=== PATIENT | male | born 1935 | race Caucasian/White ===

== ENCOUNTER 2024-08-22 17:59 | Inpatient (IN) | payer OTHER, SELFPAY ==
[2024-08-22] VITALS (11 sets, daily range): BP systolic 117–161; BP diastolic 62–106; BMI 29.8; BMI 27.4
--- NOTE | 2024-08-22 12:05 | ED.GENMED ---
History of Present Illness
General
Chief Complaint: Breathing Problem
Source: patient and family
Exam Limitations: none
Time Seen by Provider: 08/22/24 11:47
History of Present Illness
History of Present Illness:
89yoM with a history of coronary artery disease s/p CABG and PCI, CHF, permanent atrial fibrillation, COPD, hypertension, hyperlipidemia presenting with his daughter for evaluation of multiple complaints. Patient went to [place] last week
with friends on a hunting trip. While he was on the trip 5 days ago, he tripped in the bathroom and struck his left flank region against the bathtub. He has been having ongoing pain since that time and is now developed a bruise in the area. Pain
is worse with breathing and movement. He is also been having a gradual worsening of dyspnea since returning from the trip 3-4 days ago. Daughter states he was noncompliant with his nebulizers during the trip. He gained 6 pounds throughout his
trip and daughter gave him 40 mg of Lasix 3 days ago and a second dose 2 days ago. He typically only takes Lasix as needed. His leg swelling has significantly improved since starting the Lasix. He is still 4 pounds above his dry weight this
morning. Daughter also reports cough and states it seems like he is slurring his words.
Past History
Past History
ED Past Medical History: Arrthythmia, CAD, COPD, HTN, Hypercholesterolemia and Other (sleep apnea)
ED Past Surgical History: Cardiac (CABG, stents) and Orthopedic (Left knee surgery 1995 bilateral carpal tunnel surgeries)
Social History
Tobacco: Former smoker
Alcohol: Occasional
Drug: None
Personal:
Living: with family
Employment: Not employed
Family History
Family History: Hypertension
Phy Exam
General Physical Exam
General Presentation: well appearing
General Skin: warm and dry
General Habitus: normal and elderly
General Mental: alert
ENT Exam
ENT Exam: normocephalic
Cardiovascular Exam
Cardiovascular Exam: irregularly irregular
Pulmonary Exam
Pulmonary Exam: generalized wheezing and other (Rhonchi noted throughout with wheezing. Speaking in full sentences without difficulty )
Gastrointestinal Exam
Gastrointestinal Exam: other (Ecchymosis noted to L flank region. No palpable hematoma. Mild tenderness to L abdomen)
Neurological Exam
Neurological Exam: alert
[place] Coma Scale
Eye Opening: Spontaneous
Verbal Response: Oriented
Motor Response: Obeys Commands
GCS Total Score: 15
Skin Exam
Skin Exam: warm/dry
Psychiatric Exam
Psychiatric Exam: normal mood/affect
Scores
Heart Failure Risk
Heart Failure Risk Score: Not Applicable
Course
Orders/Labs/Results
Orders:
Orders
08/22/24 10:30
ECG [Electrocardiogram (*1)] Urgent
Reason for Study: Atrial Fibrillation
08/22/24 10:31
EKG- Treatment ONCE
08/22/24 12:02
Ipratropium/Albuterol Sulfate [Duoneb] 3 ml INH R NOW STA
08/22/24 12:03
CT Abd/pel Without Iv Or Oral Urgent
Comment:
Reason For Exam: L flank ecchymosis, fall
CR Chest - 2 Views Urgent
Comment:
Reason For Exam: SOB
08/22/24 12:04
Cardiac Monitoring- Treatment ONCE
08/22/24 12:27
Complete Blood Count/With Diff Urgent
Comprehensive Metabolic Panel Urgent
NT-proBNP Urgent
Troponin I Urgent
08/22/24 15:24
Furosemide [Lasix] 40 mg IV NOW STA
08/22/24 17:04
Admit/Transfer Patient As Directed
Co-Sign Provider:
Level of Care: Inpatient admission
Assign to:: Telemetry
Physician / Group: Tia
Diagnosis: CHF
Reason for Telemetry: Acute Heart Failure
Date to Stop Telemetry: 08/25/24
Time to Stop Telemetry: 11:00
Reason for Hospitalization: IV diuretics
Expected length of stay greater than two midnights?: Yes
ELOS- Estimated Length of Stay in days: 3
I certify the patient meets the requirements for IP care: Yes
PRN Pain Medication Management As Directed
May give lesser potent ordered pain med per pt: Yes
preference::
Protocol:: Medication orders for pain may be administered in a
manner that supports deferring to patient preference
when the pt is:
- Requesting an ordered lesser potent pain medication.
Least to most potent pain medications are defined
as: acetaminophen < NSAID < tramadol < opioids
(morphine, oxycodone, hydromorphone).
- Requesting a lesser dose of the same medication IF
ORDERED.
- Requesting a less intrusive route of administration
if both routes are prescribed by the provider (PO <
IV).
08/22/24 17:05
Code Status As Directed
Resuscitation Status: Full Code
08/25/24 11:00
DC Protocol for Telemetry ONCE
Abnormal Lab Results
08/22/24
12:27
RBC 4.39 L 10^6/uL
(4.70-6.10)
Hgb 12.9 L g/dL
(13.0-18.0)
MCHC 32.3 L g/dL
(33.0-37.0)
RDW 15.6 H %
(11.5-14.5)
MPV 11.0 H fL
(7.4-10.4)
Abs Immat Gran (auto) 0.1 H 10^3/uL
(0-0.05)
Absolute Lymphs (auto) 0.6 L 10^3/uL
(1.2-3.4)
Absolute Monos (auto) 0.8 H 10^3/uL
(0.1-0.6)
Immature Gran % 1.3 H %
(0-0.5)
Neutrophils % 79.0 H %
(42.2-75.2)
Lymphocytes % 8.2 L %
(20.5-51.1)
Monocytes % 10.8 H %
(1.7-9.3)
Chloride 108 H mmol/L
(98-107)
BUN 48 H mg/dl
(9-20)
Creatinine 1.6 H mg/dL
(0.7-1.3)
Glucose 116 H mg/dl
(70-99)
Total Bilirubin 2.0 H mg/dl
(0.2-1.3)
Total Protein 6.1 L g/dl
(6.3-8.2)
08/22/24 12:27
08/22/24 12:27
Vital Signs
Initial and Last Documented VS:
Initial Vital Signs
Temp Pulse Resp BP Pulse Ox
97.8 F 49 20 148/73 95
08/22/24 10:25 08/22/24 10:25 08/22/24 10:25 08/22/24 10:25 08/22/24 10:25
Last Documented Vital Signs
Temp Pulse Resp BP Pulse Ox
97.6 F 91 23 155/106 93
08/22/24 12:02 08/22/24 16:50 08/22/24 15:30 08/22/24 16:50 08/22/24 15:30
MDM/Problems Addressed
Differential Diagnosis Includes:
89yoM here with SOB and weight gain. Started after returning from a trip to [place]. Admits to noncompliance with meds/diet. Hx of COPD and CHF. There is rhonchi noted on lung exam. He is mildly hypertensive with otherwise stable vitals. He
is acutely nontoxic appearing. Differential diagnosis includes but is not limited to: CHF exacerbation, COPD exacerbation, GARDENIA, pneumonia
Initial ED plan: Check cardiac labs, EKG, CXR, and CT abdomen given history of fall and L flank ecchymosis. CT head initially ordered due to concern for slurred speech although daughter states he always talks like this when he is dehydrated. DuoNeb
and reassess.
*EKG
Interpreted by ED Provider?: Yes
EKG Intrepretation Date: 08/22/24
Heart Rate: 98
Rate: normal
Rhythm: a-fib and PVC's
[place]: normal axis
QRS Pattern: right bundle branch block
Ischemia: no ischemia
*Critical Care Note
Total Time (30-74mins, 75-104mins- exclusive of procedures): Not Applicable
Update Note
Update Note:
BNP elevated at 5900. Interstitial edema noted on chest x-ray. CT abdomen shows a mildly displaced fracture of the left 11th rib. 40 mg IV Lasix ordered and patient admitted for further management.
ED Attending Note
-
Portions of this chart may have been created with voice recognition software.� Occasional wrong word or��sound alike� substitutions may have occurred due to the inherent limitations of voice recognition software.
Discharge Plan
Departure
Patient Disposition: Admit
Date of Disposition: 08/22/24
Time of Disposition: 15:44
Presentation/result/management discussed w/ accepting MD/DO: Hospitalist
Discharge Problem:
Acute exacerbation of CHF (congestive heart failure), Closed fracture of rib of left side
Interventions
Interventions:
*Risk Screen - Suicide Last Done: 08/22/24 10:25
*General Assessment Last Done: 08/22/24 12:02
*Neglect/Abuse Screening Last Done: 08/22/24 12:02
*ED- Fall Risk Assessment Last Done: 08/22/24 12:02
*ED COVID-19 Vaccine History Last Done: 08/22/24 12:02
ED- Cardiac Assessment Last Done: 08/22/24 12:02
ED- Pulmonary Assessment Last Done: 08/22/24 12:02
[2024-08-22 12:41] LABS: % Basophils 0.4 % (0-2); % Eosinophils 0.3 % (0-6); % Immature Granulocytes 1.3 % (0-0.5); % Lymphocytes 8.2 % (20.5-51.1); % Monocytes 10.8 % (1.7-9.3); Absolute Immature Granulocytes 0.1 10^3/uL (0-0.05); Absolute Lymphocytes 0.6 10^3/uL (1.2-3.4); Absolute Monocytes 0.8 10^3/uL (0.1-0.6); Absolute Neutrophils 6.2 10^3/uL (1.4-6.5); Hemoglobin 12.9 g/dL (13.0-18.0); Mean Corp Hgb Conc. 32.3 g/dL (33.0-37.0); Mean Corpuscular Hgb 29.4 pg (27.0-31.0); Mean Corpuscular Volume 91.1 fL (80.0-94.0); Nucleated Red Blood Cells % 0 % (-); Platelet Count 135 10^3/uL (130-400); Red Blood Cell Count 4.39 10^6/uL (4.70-6.10); Red Cell Dist. Width 15.6 % (11.5-14.5); White Blood Cell Count 7.8 10^3/uL (4.8-10.8)
[2024-08-22 13:02] LABS: ALT (SGPT) 19 U/L (0-50); AST (SGOT) 32 U/L (17-59); Albumin 3.7 g/dl (3.5-5.0); Alkaline Phosphatase 77 U/L (38-126); Blood Urea Nitrogen 48 mg/dl (9-20); Calcium 9.1 mg/dl (8.4-10.2); Carbon Dioxide 24 mmol/L (22-30); Chloride 108 mmol/L (98-107); Estimated Creatinine Clearance 31 ml/min; Glucose 116 mg/dl (70-99); Potassium 4.1 mmol/L (3.5-5.1); Sodium 142 mmol/L (135-145); Total Protein 6.1 g/dl (6.3-8.2); eGFR 41.19
[2024-08-22 13:05] LABS: NT-proBNP 5920 pg/ml; Troponin I 0.022 ng/ml
[2024-08-22] MEDS: DUONEB 3 ML INH ×2 (13:07→20:58)
--- NOTE | 2024-08-22 16:20 | HPS.HSE ---
Family Physician
-
Family Physician: Miryam Pina, DO
Chief Complaint
-
Dyspnea on exertion, Cough and Lower Extremity Edema
History of Present Illness
Patient is an 89 y/o male past medical history of CAD, CHF, CKD and COPD who presents with dyspnea on exertion, cough and lower extremity edema. Patient was away with friend for a week and when he returned from the trip his daughter noted he had
gained 6 lbs in a week and had significant lower extremity edema. Patient took Lasix on August 19 and , but not (yesterday) due to the holiday. Daughter reports lower extremity edema is slightly better but not back to baseline. Daughter
notes patient also missed doses of nebulizers while away. Patient also sustained a fall and is complaining about left flank pain and bruising.
He denies fevers. He denies chest pain.
Medical History
Past Medical History
Past Medical History: Reports Other
Additional Past Medical History:
Coronary Artery Disease s/p CABG and Stent
Chronic HFpEF
Paroxysmal Atrial Fibrillation
Essential Hypertension
Hyperlipidemia
CKD Stage III
Chronic Metabolic Acidosis
COPD
Past Surgical History: Reports Other
Additional Past Surgical History:
Coronary Artery Bypass Graft
Left Knee Surgery
Bilateral Carpal Tunnel
Social History
Tobacco: Former Smoker
Alcohol: Occasional
Living: With Family
Family History
Family History: Not pertinent
Allergies / Home Medications
Allergies reflects when Allergies were last updated in [facility].
Home Medications with original date entered in [facility]
Allergy/Medication List:
Allergies
Allergy/AdvReac Type Severity Reaction Status Date / Time
No Known Allergies Allergy Verified 08/22/24 10:26
Home Medications
cyanocobalamin (vitamin B-12) 1,000 mcg tablet 1,000 mcg PO DAILY Supplement 07/04/11
budesonide 0.5 mg/2 mL suspension for nebulization 0.5 mg inhalation R BID Lung/breathing issues 02/28/20
rosuvastatin 40 mg tablet (Crestor) 40 mg PO QPM High cholesterol 02/28/20
allopurinol 300 mg tablet 300 mg PO HS Gout 05/08/23
ipratropium 0.5 mg-albuterol 3 mg (2.5 mg base)/3 mL nebulization soln 3 ml inhalation R BID Lung/Breathing Issues 05/08/23
apixaban 2.5 mg tablet (Eliquis) 2.5 mg PO BID afib #0 tabs 05/11/23
omega 9-ncn-yki-fish oil 1,200 mg (144 mg-216 mg) capsule (Fish Oil) 1,200 cap PO DAILY Supplement #0 caps 05/11/23
acetaminophen 500 mg tablet (Tylenol Extra Strength) 1,000 mg PO BIDPRN PRN mild pain 05/25/23
sodium bicarbonate 650 mg tablet 650 mg PO TID 08/22/24
Review of Systems
-
A 12 point ROS was completed and negative except as noted: Yes
Constitutional: Denies Fever
Respiratory: Reports Cough and Trouble Breathing
Cardiac: Denies Chest Pain or Palpitations
Physical Exam
Vital Signs
Vital Signs
Temp Pulse Resp BP Pulse Ox
97.6 F 99 23 136/81 93
08/22/24 12:02 08/22/24 15:30 08/22/24 15:30 08/22/24 15:30 08/22/24 15:30
Physical Exam
General: Comfortable and Conversant
HEENT: Anicteric and Moist mucous membranes
Respiratory: Wheezes, Rhonchi and Other (Increased work of breath with minimal activity to scoot up on stretcher)
Cardiac: S1/S2 and Regular Rhythm
GI: Soft and Non Tender
Rectal: Deferred by Provider
Musculoskeletal: No Clubbing, No Cyanosis and Other (+1 edema bilateral lower extremities)
Skin: Warm, Dry and Other (Ecchymosis left flank )
Neuro: Awake, Alert and Nonfocal/grossly intact
Psych: Calm
Laboratory Results
-
08/22/24 12:
08/22/24 12:27
Laboratory Results
Total Bilirubin 2.0 mg/dl (0.2-1.3) H 08/22/24 12:
AST 32 U/L (17-59) 08/22/24 12:
ALT 19 U/L (0-50) 08/22/24 12:
Alkaline Phosphatase 77 U/L (38-126) 08/22/24 12:
Troponin I 0.022 ng/ml 08/22/24 12:27
Data Reviewed
-
Diagnostic Radiology: Report Reviewed by me
CT Scan: Report Reviewed by me
Lab Data: Labs Reviewed by me
Impression/Plan
-
Acute on Chronic HFpEF
-Consult Cardiology
-Check Echo
-Continue Lasix 40mg IV Daily
-Monitor Is&Os and Daily Weights
Left 11th Rib Fracture
-Continue Tylenol and Oxycodone prn
-Avoid Lidocaine patch given significant bruising
COPD, mild acute exacerbation
-Continue budesonide
-Continue DuoNeb QID and PRN
-Add Mucinex
-Consider steroids if breathing is no improving
Coronary Artery Disease s/p CABG and Stent
-Stable
Paroxysmal Atrial Fibrillation
-Continue Eliquis
Hyperlipidemia
-Continue Crestor
CKD Stage III
-Monitor Creatinine closely while on diuretics
Chronic Metabolic Acidosis
-Continue sodium bicarbonate
DVT proph: Eliquis
Code Status: Full Code
[2024-08-22] MEDS: LASIX 40 MG IV (16:50)
--- NOTE | 2024-08-22 17:00 | W.PN.UPDATE ---
Update Note
Progress Note Update
This is an addendum to the H&P written by Ling Newman on 08/22/2024.� Patient seen and examined independently with PA.
89-year-old male past medical history of HFpEF, permanent atrial fibrillation on Eliquis, hypertension, hyperlipidemia, obstructive sleep apnea, COPD, CAD status post CABG, CKD 3B, gout presenting with shortness of breath and cough with exertion and
6 pound weight gain and lower extremity edema after noncompliance with diet while on vacation recently.
Also with fall 3 days ago with left flank pain.
Vital signs normal but getting tachycardic and tachypneic with exertion.� Coarse rhonchi on examination
Labs show cardiac BNP of 5900.� Creatinine of 1.6 better than baseline.� Chest x-ray shows interstitial edema.
CT abdomen pelvis shows displaced fracture of the posterior left 11th rib with mild inflammatory stranding within the overlying soft tissue.� There is mild bronchial wall thickening within both posterior lobes some peripheral nodules infectious or
inflammatory.
Patient with acute CHF exacerbation.� 40 IV Lasix daily.� Monitor renal function.� Check echocardiogram.� Cardiology consulted.
DuoNebs every 6 as needed.� Consider steroids if no improvement with diuresis.
Tylenol for pain from rib fracture.
--- NOTE | 2024-08-22 17:33 | CON.CAR ---
Addendum entered and electronically signed by Cha Balderas MD 08/22/24 18:05:
I saw and examined the patient.
The [employer] DRY HOUSE OPERATOR's note was reviewed and I agree with the note.
Comment: 89 year old male with CAD s/p CABG 2005 (JJ-LAD, VG-D1, VG-PDA), mid RCA stent 2004, paroxysmal atrial flutter, persistent atrial fibrillation (on apixaban), HTN, dyslipidemia, mild/mod , mild AR, mild/mod TR, chronic HFpEF, CKD3b, SIMÓN
(cannot tolerate CPAP), and COPD, who presented with a chief complaint of shortness of breath, after being noncompliant with diet, nebulizer, and medications during recent vaction. On exam, he is sitting right up. He is diffusely wheezing, has an
elevated jvp, irreg irreg, 1+ edema. ECG afib with rbbb, CXR mild pulm edema. TTE 05/11/23 normal lvef, mod as. Assesssment: acuter hfpef, acute copd exacerbation. Will diuresis with iv lasix and intensive monitoring,will update echo. Will likely
need some plan for standing diuretic. Would aggressively treat COPD as well. Will follow
Original Note:
Consultation
Consultation Request
Date/Time Consultation Requested: 08/22/2024 17:05
Date/Time Consultation Performed: 08/22/2024 17:05
Requesting Provider: Ling Davis PA-C
Performing Provider: LINDA Marquez for Dr. Balderas
Reason for Consultation: Acute on chronic heart failure
Medical History
-
Chief Complaint: Shortness of breath
History of Present Illness:
Mr. Cevallos is an 89 year old male with CAD s/p CABG 2005 (JJ-LAD, VG-D1, VG-PDA), mid RCA stent 2004, paroxysmal atrial flutter, persistent atrial fibrillation (on apixaban), HTN, dyslipidemia, mild/mod , mild AR, mild/mod TR, chronic HFpEF,
CKD3b, SIMÓN (cannot tolerate CPAP), and COPD, who presented with a chief complaint of shortness of breath. He endorses associated cough and lower extremity edema. He was recently on a hunting trip in [place]. He endorses nonadherence with
sodium and fluid intake. He also had not been using his nebulizer. He takes furosemide as needed. When he was on daily dosing he had syncope in the setting of dehydration. His daughter gave him oral furosemide for the past 2 days. He has lost 2
of the 6 pounds of weight gain. He endorses orthopnea, lower extremity edema, and cough.
While on his hunting trip, he fell in the bathroom. He has a rib fracture. Bruising on exam.
Past Medical History
Past Medical History: Arrhythmias (Paroxysmal atrial flutter, persistent atrial fibrillation), CAD, CHF, Hypercholesterolemia and Valvular Disease
Past Surgical History: Cardiac (CABG) and Orthopedic
Social History
Tobacco: Former Smoker
Alcohol: None
Drug: None
Living: With Family
Employment: Retired
Family History
Family History: Reviewed & Not Pertinent
Allergies / Home Medications
Allergy/AdvReac Type Severity Reaction Status Date / Time
No Known Allergies Allergy Verified 08/22/24 10:26
�Medication �Instructions �Recorded �Confirmed �Type
cyanocobalamin (vitamin B-12) 1,000 mcg PO DAILY Supplement 07/04/11 08/22/24 History
1,000 mcg tablet
budesonide 0.5 mg/2 mL suspension 0.5 mg inhalation R BID 02/28/20 08/22/24 History
for nebulization Lung/breathing issues
rosuvastatin 40 mg tablet (Crestor) 40 mg PO QPM High cholesterol 02/28/20 08/22/24 History
allopurinol 300 mg tablet 300 mg PO HS Gout 05/08/23 08/22/24 History
ipratropium 0.5 mg-albuterol 3 mg 3 ml inhalation R BID 05/08/23 08/22/24 History
(2.5 mg base)/3 mL nebulization Lung/Breathing Issues
soln
apixaban 2.5 mg tablet (Eliquis) 2.5 mg PO BID afib #0 tabs 05/11/23 08/22/24 Rx
omega 8-hci-xzc-fish oil 1,200 mg 1,200 cap PO DAILY Supplement #0 05/11/23 08/22/24 Rx
(144 mg-216 mg) capsule (Fish Oil) caps
acetaminophen 500 mg tablet 1,000 mg PO BIDPRN PRN mild pain 05/25/23 08/22/24 History
(Tylenol Extra Strength)
sodium bicarbonate 650 mg tablet 650 mg PO TID 08/22/24 08/22/24 History
Review of Systems
-
History Source: Patient
All other systems: Negative unless noted
Constitutional: Weight Gain and Fatigue
EENT: No Symptoms
Respiratory: Cough and Trouble Breathing
Cardiac: No Symptoms
Abdomen/GI: No Symptoms
: No Symptoms
Musculoskeletal: Edema
Skin: No Symptoms
Neurological: Weakness
Endocrine: No Symptoms
Hematologic/Lymphatic: No Symptoms
Physical Exam
Vital Signs
Temp Pulse Resp BP Pulse Ox
97.6 F 91 23 155/106 93
08/22/24 12:02 08/22/24 16:50 08/22/24 15:30 08/22/24 16:50 08/22/24 15:30
Lab Results
08/22/24 12:27
08/22/24 12:27
Troponin I 0.022 ng/ml 08/22/24 12:27
Els-E-Oqxlxldpnfl Pept 5920 pg/ml 08/22/24 12:27
Physical Exam
General: Well Developed, Well Nourished and Respiratory Distress (Mild)
HEENT: Normocephalic, Anicteric and Moist Mucous Membranes
Respiratory: Wheezes, Rhonchi and Accessory Resp Muscle Use
Cardiac: S1/S2, Irregular Rhythm and Peripheral Edema
Breast: Deferred by me
GI: Soft, Non Tender, Non Distended and Normal Bowel Sounds
Rectal: Deferred by Provider
Genito-urinary: No Costovertebral Tender
Musculoskeletal: No Clubbing and No Cyanosis
Skin: Warm, Dry and Other (Bruise left ribs)
Neuro: AO x 3
Hematologic/Lymphatic: No Lymphadenopathy
Psych: Calm
Impression / Plan
-
I/P: 89M with CAD s/p CABG 2005 (JJ-LAD, VG-D1, VG-PDA), mid RCA stent 2004, paroxysmal atrial flutter, persistent atrial fibrillation (on apixaban), HTN, dyslipidemia, mild/mod , mild AR, mild/mod TR, chronic HFpEF, CKD3b, SIMÓN (cannot tolerate
CPAP), and COPD, who presented with a chief complaint of shortness of breath.
Outpatient clinical nursing manager: Dr. Celestin
HFpEF, acute on chronic
- Weight gain, orthopnea, elevated proBNP, and interstitial edema on CXR
- Diuresis with intravenous furosemide, this requires intensive monitoring
- GDMT limited by renal function
- Echocardiogram on Thursday, he currently cannot tolerate lying back due to dyspnea
- Daily dosing of furosemide was associated with G[place]EN[place] and syncope in the past
Persistent atrial fibrillation, perhaps permanent
- No plans for rhythm control this admission
- Rate controlled without AV kristi agents, rate slightly elevated in the emergency room but in mild respiratory distress
- [id number] score of 5
- Oral anticoagulation: Apixaban 2.5 mg twice daily (age 89, creatinine >1.5), denies missed doses and abnormal bleeding
COPD, acute on chronic - per primary service
CAD
- CABG 2005 (JJ-LAD, VG-D1, VG-PDA), PCI mRCA (2004)
- Remains stable without chest pain.
- No ASA, on apixaban
Mechanical fall with 11th left rib fracture
CKD3b, with proteinuria, follow with diuresis, follows with nephrology as an outpatient
Aortic stenosis, moderate, peak/mean gradients 42/22 mmHg, mild to moderate AR
Anemia of chronic disease
Former smoker, 100 pack year, continued cessation recommended
Dyslipidemia, stable on rosuvastatin, continue
SIMÓN, CPAP intolerant
SUBJECTIVE:
As above.
Data Reviewed
-
EKG: Report Reviewed by me
Radiology: Report Reviewed by me
Labs: Labs Reviewed by me
Old Records: Reviewed
--- NOTE | 2024-08-22 20:30 | PTCARENOTE ---
Pt arrived to 3W from ED via stretcher at approx. 2000. Pt able to ambulate into room with quad cane. equipment monitor phototypesetting #2 placed. Pt AOx3. Oriented to room and call escudero within reach.
[2024-08-22] MEDS: PULMICORT 0.5 MG INH (20:58)
[2024-08-22] MEDS: SODIUM BICARBONATE 650 MG PO (21:16)
[2024-08-22] MEDS: ELIQUIS 2.5 MG PO (21:16)
[2024-08-22] MEDS: CRESTOR 40 MG PO (21:16)
[2024-08-22] MEDS: ZYLOPRIM 300 MG PO (21:16)
[2024-08-22] MEDS: MUCINEX 600 MG PO (21:17)
--- NOTE | 2024-08-22 22:00 | PTCARENOTE ---
Pt tele monitor alarming for HR 150's-170's. HR sustaining around 120's-130's. BUTT MAKER notified and orders for IV Lopressor added. See MAR for administration. Pt HR now sustaining 80's-100's. Pt asymptomatic. Call escudero within reach. Plan of care
ongoing.
[2024-08-22] MEDS: LOPRESSOR 5 MG IV (22:48)
[2024-08-23 03:00] VITALS: BP 137/83
[2024-08-23 06:00] VITALS: BMI 26.8
[2024-08-23 07:18] VITALS: BP 138/73
[2024-08-23] MEDS: DUONEB 3 ML INH ×3 (07:19→19:20)
[2024-08-23] MEDS: PULMICORT 0.5 MG INH ×2 (07:19→19:24)
--- NOTE | 2024-08-23 07:39 | W.PN.HOSP.TC ---
Today's Communication/Plan
-
Continue IV diuresis
See plan
Assessment / Plan
Assessment / Plan
Physical Exam
General: Not in acute distress
HEENT: Normocephalic and Moist mucous membranes
Respiratory: Rhonchi bilaterally
Cardiac: S1/S2 and Irregular Rhythm. Systolic Murmur present.
GI: Soft and Non Tender. Positive bowel sounds.
Musculoskeletal: No Cyanosis and Other (+1 edema bilateral lower extremities)
Skin: Warm, Dry and Other (Ecchymosis left flank )
Neuro: Awake, Alert and Nonfocal/grossly intact
Psych: Calm
Assessment/Plan
89-year-old male with past medical history of HFpEF, permanent atrial fibrillation on Eliquis, hypertension, hyperlipidemia, obstructive sleep apnea, COPD, CAD status post CABG, CKD 3B, gout presenting with shortness of breath and cough with
exertion and 6 pound weight gain and lower extremity edema after noncompliance with diet while on vacation recently. Also with fall 3 days ago with left flank pain. On admission, vital signs unremarkable but was getting tachycardic and tachypneic
with exertion; coarse rhonchi was present on examination. Labs showed cardiac BNP of 5900. Creatinine of 1.6 better than baseline. Chest x-ray showed interstitial edema. CT abdomen pelvis showed displaced fracture of the posterior left 11th rib with
mild inflammatory stranding within the overlying soft tissue. There is mild bronchial wall thickening within both posterior lobes some peripheral nodules infectious or inflammatory.
Acute on Chronic HFpEF: weight gain, SOB, elevated proBNP, and interstitial pulmonary edema
-Consult Cardiology
-Check Echo on 08/24/24 since patient cannot lie tolerating on back for echo today
-Continue Lasix 40mg IV Daily (please note: daily dosing of furosemide was associated with GARDENIA and syncope in the past)
-Monitor Is&Os and Daily Weights
Recent Fall -- suspected combination of lower edema, weight gain, SOB, CHF exacerbation
Left 11th Rib Fracture
-Continue Tylenol and Oxycodone prn
-Avoid Lidocaine patch given significant bruising
COPD, mild acute exacerbation
-Continue budesonide
-Continue DuoNeb QID and PRN
-Add Mucinex
-Consider steroids if breathing is no improving
Coronary Artery Disease s/p CABG and Stent
-Stable
-Continue Eliquis and statin
Persistent Atrial Fibrillation with RVR
-Continue Eliquis 2.5 mg BID
-Start Cardizem CD 120 mg daily
Hyperlipidemia
-Continue Crestor
CKD Stage III
-Monitor Creatinine closely while on diuretics
-Sees nephrology outpatient
Chronic Metabolic Acidosis
-Continue sodium bicarbonate
Aortic stenosis, moderate, peak/mean gradients 42/22 mmHg, mild to moderate AR
Anemia of chronic disease
Former smoker, 100 pack year, continued cessation recommended
SIMÓN
-CPAP intolerant
DVT Prophylaxis: Eliquis
Code Status: Full Code
Anticipated Discharge: 24 - 48 hours
Subjective/Interval History
-
Date of Service: August 23, 2024
Patient was seen and examined. He denied chest pain, but reported chronic shortness of breath. He denied any other symptoms or complaints.
Objective Data
-
Labs:
Laboratory Results
08/23/24
07:27
WBC Pending
Hgb Pending
Hct Pending
Plt Count Pending
Sodium Pending
Potassium Pending
Chloride Pending
Carbon Dioxide Pending
BUN Pending
Creatinine Pending
Glucose Pending
Calcium Pending
Vital Signs:
Vital Signs
Temp Pulse Resp BP Pulse Ox
98.6 F 96 18 138/73 94
08/23/24 07:18 08/23/24 07:21 08/23/24 07:21 08/23/24 07:18 08/23/24 07:21
I&O
04/08/23/24 08/24/24
06:59 06:59 06:59
Intake Total 480 / 480
Output Total 400 / 400 300 / 300
Balance -400 / -400 180 / 180
--- NOTE | 2024-08-23 07:48 | W.PN.CD ---
Today's Communication / Plan
-
- Continue Lasix 40 mg IV daily for now.
- Echocardiogram on Thursday; currently cannot tolerate lying back due to dyspnea.
- Patient with atrial fibrillation with RVR; will start Cardizem CD 120 mg daily.
Impression / Plan
-
I/P: 89M with CAD s/p CABG 2005 (JJ-LAD, VG-D1, VG-PDA), mid RCA stent 2004, paroxysmal atrial flutter, persistent atrial fibrillation (on apixaban), HTN, dyslipidemia, mild/mod , mild AR, mild/mod TR, chronic HFpEF, CKD3b, SIMÓN (cannot tolerate
CPAP), and COPD, who presented with a chief complaint of shortness of breath.
Outpatient leadership program associate: Dr. Celestin
HFpEF, acute on chronic
- Weight gain, orthopnea, elevated proBNP, and interstitial edema on CXR
- Diuresis with intravenous furosemide, this requires intensive monitoring
- Continue Lasix 40 mg IV daily for now.
- GDMT limited by renal function
- Echocardiogram on Thursday; currently cannot tolerate lying back due to dyspnea.
- Daily dosing of furosemide was associated with GARDENIA and syncope in the past.
Persistent atrial fibrillation, perhaps permanent
- No plans for rhythm control this admission
- Patient with atrial fibrillation with RVR; will start Cardizem CD 120 mg daily.
- [id number] score of 5
- Oral anticoagulation: Apixaban 2.5 mg twice daily (age 89, creatinine >1.5), denies missed doses and abnormal bleeding
COPD, acute on chronic - per primary service
CAD
- CABG 2005 (JJ-LAD, VG-D1, VG-PDA), PCI mRCA (2004)
- Remains stable without chest pain.
- No ASA, on apixaban
Mechanical fall with 11th left rib fracture
CKD3b, with proteinuria, follow with diuresis, follows with nephrology as an outpatient
Aortic stenosis, moderate, peak/mean gradients 42/22 mmHg, mild to moderate AR
Anemia of chronic disease
Former smoker, 100 pack year, continued cessation recommended
Dyslipidemia, stable on rosuvastatin, continue
SIMÓN, CPAP intolerant
Physical Exam
Vital Signs/Labs
Vital Signs
Temp Pulse Resp BP Pulse Ox
98.6 F 96 18 138/73 94
08/23/24 07:18 08/23/24 07:21 08/23/24 07:21 08/23/24 07:18 08/23/24 07:21
08/22/24 08/23/24 08/24/24
06:59 06:59 06:59
Actual Weight 75.342 kg
08/22/24
12:27
Ebu-P-Fzrnvswgcgy Pept 5920
LAB Results
08/22/24
12:27
Troponin I 0.022
Physical Exam
Constitutional: No acute distress and Comfortable
EENT: Anicteric
Cardiovascular: Rhythm/rate is irregular, Pedal edema present (trace to 1+), Systolic murmur present (2-3/6) and S1S2 is normal
Respiratory: Respiratory effort normal, Wheeze Present and Crackles Present (mild)
GI: Soft
Neuro/Psych: AO x 3
Other: Skin (warm, dry)
Data Reviewed
-
Date of Service: August 23, 2024
EKG: Tracing Personally Visualized and interpreted (Telemetry: A-fib with RVR)
Echo: Report Reviewed by me (05/2013: EF 60%, moderate )
Labs: Labs Reviewed by me
[2024-08-23 08:13] LABS: Hematocrit 41.5 % (39.0-52.0); Hemoglobin 13.5 g/dL (13.0-18.0); Mean Corp Hgb Conc. 32.5 g/dL (33.0-37.0); Mean Corpuscular Hgb 29.2 pg (27.0-31.0); Mean Corpuscular Volume 89.6 fL (80.0-94.0); Mean Platelet Volume 11.2 fL (7.4-10.4); Platelet Count 163 10^3/uL (130-400); Red Blood Cell Count 4.63 10^6/uL (4.70-6.10); Red Cell Dist. Width 15.6 % (11.5-14.5); White Blood Cell Count 9.5 10^3/uL (4.8-10.8)
[2024-08-23] MEDS: ELIQUIS 2.5 MG PO ×2 (08:16→21:15)
[2024-08-23] MEDS: CARDIZEM CD 120 MG PO (08:16)
[2024-08-23] MEDS: SODIUM BICARBONATE 650 MG PO ×3 (08:16→21:15)
[2024-08-23] MEDS: MUCINEX 600 MG PO ×2 (08:16→21:15)
[2024-08-23] MEDS: LASIX 40 MG IV (08:17)
[2024-08-23 08:42] LABS: Blood Urea Nitrogen 40 mg/dl (9-20); Calcium 9.3 mg/dl (8.4-10.2); Carbon Dioxide 19 mmol/L (22-30); Chloride 107 mmol/L (98-107); Estimated Creatinine Clearance 27 ml/min; Glucose 111 mg/dl (70-99); Magnesium 2.1 mg/dl (1.6-2.3); Potassium 3.7 mmol/L (3.5-5.1); Sodium 141 mmol/L (135-145)
[2024-08-23 09:08] LABS: TSH Reflex To Free T4 1.74 uIU/ml (0.47-4.68)
--- NOTE | 2024-08-23 10:24 | CM ---
Patient seen at bedside.
Dx: CHF
PMH: CAD, CHF, COPD
IA completed
spoke with daughter Michaelle
Patient recently returned from a hunting trip in [place] with his friends.
Patient lives with his grand-daughter Patricia & her in 1 story home, 3 steps to enter
PLOF: Independent with cane
DME: Cane, walker, nebulizer, shower chair
Has had [facility] in past, denies SNF
PCP: Miryam Pina
Pharmacy: [facility]
PLAN: home, CM to follow for needs
[2024-08-23 10:53] VITALS: BP 110/59
[2024-08-23 15:19] VITALS: BP 115/64
[2024-08-23] MEDS: CRESTOR 40 MG PO (17:27)
[2024-08-23 19:00] VITALS: BP 133/74
[2024-08-23] MEDS: ZYLOPRIM 300 MG PO (21:15)
[2024-08-23 23:00] VITALS: BP 155/77
[2024-08-24 03:00] VITALS: BP 132/73
[2024-08-24 05:51] VITALS: BMI 26.8
[2024-08-24] MEDS: PULMICORT 0.5 MG INH ×2 (07:01→19:15)
[2024-08-24] MEDS: DUONEB 3 ML INH ×2 (07:01→19:15)
[2024-08-24 07:35] VITALS: BP 162/79
[2024-08-24 07:48] VITALS: BP 162/79
[2024-08-24] MEDS: SODIUM BICARBONATE 650 MG PO ×3 (07:53→21:20)
[2024-08-24] MEDS: ELIQUIS 2.5 MG PO ×2 (07:53→19:57)
[2024-08-24] MEDS: MUCINEX 600 MG PO ×2 (07:55→19:57)
[2024-08-24] MEDS: CARDIZEM CD 120 MG PO (07:55)
[2024-08-24 08:27] LABS: Blood Urea Nitrogen 40 mg/dl (9-20); Calcium 9.3 mg/dl (8.4-10.2); Carbon Dioxide 22 mmol/L (22-30); Chloride 105 mmol/L (98-107); Estimated Creatinine Clearance 26 ml/min; Glucose 118 mg/dl (70-99); Magnesium 2.1 mg/dl (1.6-2.3); Potassium 3.6 mmol/L (3.5-5.1); Sodium 141 mmol/L (135-145); eGFR 35.76
--- NOTE | 2024-08-24 09:38 | W.PN.CD ---
Today's Communication / Plan
-
- Continue Lasix 40 mg IV daily.
- Echocardiogram today.
- Patient with atrial fibrillation with RVR at times; continue Cardizem CD 120 mg daily--may ultimately need to increase.
Impression / Plan
-
I/P: 89M with CAD s/p CABG 2005 (JJ-LAD, VG-D1, VG-PDA), mid RCA stent 2004, paroxysmal atrial flutter, persistent atrial fibrillation (on apixaban), HTN, dyslipidemia, mild/mod , mild AR, mild/mod TR, chronic HFpEF, CKD3b, SIMÓN (cannot tolerate
CPAP), and COPD, who presented with a chief complaint of shortness of breath.
Outpatient slip cover sewer: Dr. Celestin
HFpEF, acute on chronic
- Weight gain, orthopnea, elevated proBNP, and interstitial edema on CXR
- Diuresis with intravenous furosemide, this requires intensive monitoring
- Continue Lasix 40 mg IV daily.
- GDMT limited by renal function
- Echocardiogram today.
- Daily dosing of furosemide was associated with GARDENIA and syncope in the past.
Persistent atrial fibrillation, perhaps permanent
- No plans for rhythm control this admission
- Patient with atrial fibrillation with RVR at times; continue Cardizem CD 120 mg daily--may ultimately need to increase.
- [id number] score of 5
- Oral anticoagulation: Apixaban 2.5 mg twice daily (age 89, creatinine >1.5), denies missed doses and abnormal bleeding
COPD, acute on chronic - per primary service
CAD
- CABG 2005 (JJ-LAD, VG-D1, VG-PDA), PCI mRCA (2004)
- Remains stable without chest pain.
- No ASA, on apixaban
Mechanical fall with 11th left rib fracture
CKD3b, with proteinuria, follow with diuresis, follows with nephrology as an outpatient
Aortic stenosis, moderate, peak/mean gradients 42/22 mmHg, mild to moderate AR
Anemia of chronic disease
Former smoker, 100 pack year, continued cessation recommended
Dyslipidemia, stable on rosuvastatin, continue
SIMÓN, CPAP intolerant
Physical Exam
Vital Signs/Labs
Vital Signs
Temp Pulse Resp BP Pulse Ox
98.3 F 96 20 162/79 96
08/24/24 07:48 08/24/24 07:55 08/24/24 07:48 08/24/24 07:55 08/24/24 07:48
08/23/24 08/24/24 08/25/24
06:59 06:59 06:59
Actual Weight 75.342 kg 75.296 kg
08/23/24 07:27
08/24/24 06:22
Magnesium 2.1 mg/dl (1.6-2.3) 08/24/24 06:22
08/22/24
12:27
Ttc-K-Klafkdgzohg Pept 5920
LAB Results
08/22/24
12:27
Troponin I 0.022
Physical Exam
Constitutional: No acute distress and Comfortable
EENT: Anicteric
Cardiovascular: Pedal edema is absent, Systolic murmur absent, Rhythm/rate is irregular and S1S2 is normal
Respiratory: Respiratory effort normal, Wheeze Present and Rhonchi Present
GI: Soft
Neuro/Psych: AO x 3
Other: Skin (Warm, dry, intact)
Data Reviewed
-
Date of Service: August 24, 2024
EKG: Tracing Personally Visualized and interpreted (EKG: Atrial fibrillation)
Medical Tests (PFT, Pathology etc): Discussed with Patient
Labs: Labs Reviewed by me
--- NOTE | 2024-08-24 10:15 | CM ---
Met with patient at bedside
continue diuresis
spoke with hospitalist regarding PT eval-will order
would benefit from home health
PLAN: Await PT eval
[2024-08-24] MEDS: LASIX 40 MG IV (10:51)
[2024-08-24 14:54] VITALS: BP 136/67
[2024-08-24] MEDS: CRESTOR 40 MG PO (17:12)
--- NOTE | 2024-08-24 17:33 | W.PN.HOSP.TC ---
Today's Communication/Plan
-
Continue IV diuresis, Cardizem and Eliquis
Assessment / Plan
Assessment / Plan
Physical Exam
General: Not in acute distress
HEENT: Normocephalic and Moist mucous membranes
Respiratory: Rhonchi bilaterally
Cardiac: S1/S2 and Irregular Rhythm. Systolic Murmur present.
GI: Soft and Non Tender. Positive bowel sounds.
Musculoskeletal: No Cyanosis and Other (+1 edema bilateral lower extremities)
Skin: Warm, Dry and Other (Ecchymosis left flank )
Neuro: Awake, Alert and Nonfocal/grossly intact
Psych: Calm
Assessment/Plan
89-year-old male with past medical history of HFpEF, permanent atrial fibrillation on Eliquis, hypertension, hyperlipidemia, obstructive sleep apnea, COPD, CAD status post CABG, CKD 3B, gout presenting with shortness of breath and cough with
exertion and 6 pound weight gain and lower extremity edema after noncompliance with diet while on vacation recently. Also with fall 3 days ago with left flank pain. On admission, vital signs unremarkable but was getting tachycardic and tachypneic
with exertion; coarse rhonchi was present on examination. Labs showed cardiac BNP of 5900. Creatinine of 1.6 better than baseline. Chest x-ray showed interstitial edema. CT abdomen pelvis showed displaced fracture of the posterior left 11th rib with
mild inflammatory stranding within the overlying soft tissue. There is mild bronchial wall thickening within both posterior lobes some peripheral nodules infectious or inflammatory.
Acute on Chronic HFpEF: weight gain, SOB, elevated proBNP, and interstitial pulmonary edema
-Consult Cardiology
-Echo noted with LVEF 60 to 65%, enlarged right ventricular size, severely dilated left and right atria, moderate aortic stenosis, moderate aortic regurgitation, mild to moderate tricuspid regurgitation
-Continue Lasix 40mg IV Daily (please note: daily dosing of furosemide was associated with GARDENIA and syncope in the past)
-Monitor Is&Os and Daily Weights
Recent Fall -- suspected combination of lower edema, weight gain, SOB, CHF exacerbation
Left 11th Rib Fracture
-Continue Tylenol and Oxycodone prn
-Avoid Lidocaine patch given significant bruising
COPD, mild acute exacerbation
-Continue budesonide
-Continue DuoNeb QID and PRN
-Add Mucinex
-Consider steroids if breathing is no improving
Coronary Artery Disease s/p CABG and Stent
-Stable
-Continue Eliquis and statin
Persistent Atrial Fibrillation with RVR
-Continue Eliquis 2.5 mg BID
-Start Cardizem CD 120 mg daily
Hyperlipidemia
-Continue Crestor
CKD Stage III
-Monitor Creatinine closely while on diuretics
-Sees nephrology outpatient
Chronic Metabolic Acidosis
-Continue sodium bicarbonate
Aortic stenosis, moderate, peak/mean gradients 42/22 mmHg, mild to moderate AR
Anemia of chronic disease
Former smoker, 100 pack year, continued cessation recommended
SIMÓN
-CPAP intolerant
DVT Prophylaxis: Eliquis
Code Status: Full Code
Anticipated Discharge: 24 - 48 hours
Subjective/Interval History
-
Date of Service: August 24, 2024
Patient was seen and examined. He said he was doing good and denied any complaints.
Objective Data
-
Labs:
Laboratory Results
08/24/24
06:22
Sodium 141
Potassium 3.6
Chloride 105
Carbon Dioxide 22
BUN 40 H
Creatinine 1.8 H
Glucose 118 H
Calcium 9.3
Vital Signs:
Vital Signs
Temp Pulse Resp BP Pulse Ox
97.2 F 84 19 136/67 91
08/24/24 14:54 08/24/24 14:54 08/24/24 14:54 08/24/24 14:54 08/24/24 14:54
I&O
08/23/24 08/24/24 08/25/24
06:59 06:59 06:59
Intake Total 960 / 960 1140 / 1140
Output Total 400 / 400 1100 / 1100 800 / 800
Balance -400 / -400 -140 / -140 340 / 340
[2024-08-24 19:39] VITALS: BP 133/70
[2024-08-24] MEDS: ZYLOPRIM 300 MG PO (21:20)
[2024-08-24 21:50] LABS: Glucose - Point of Care 112 mg/dl (70-99)
[2024-08-24 23:17] VITALS: BP 155/81
[2024-08-25] VITALS (8 sets, daily range): BP systolic 129–169; BP diastolic 64–85; PULSE 72–92; O2SAT 90; BMI 26.5
--- NOTE | 2024-08-25 05:26 | DOWNTIME ---
There was a [employer] Downtime on 08/25/2024 from 0200 to 08/26/2023 at 0318 . Downtime documentation of patient's care, including medication administrations, has been reconciled in the electronic record per guidelines. Refer to the
patient's paper chart under the miscellaneous tab to see printed paper medication records and downtime forms.
[2024-08-25] MEDS: PULMICORT 0.5 MG INH ×2 (07:17→19:35)
[2024-08-25] MEDS: DUONEB 3 ML INH ×2 (07:17→19:35)
[2024-08-25 08:02] LABS: Blood Urea Nitrogen 38 mg/dl (9-20); Carbon Dioxide 26 mmol/L (22-30); Chloride 104 mmol/L (98-107); Estimated Creatinine Clearance 27 ml/min; Glucose 117 mg/dl (70-99); Potassium 3.5 mmol/L (3.5-5.1); Sodium 139 mmol/L (135-145)
--- NOTE | 2024-08-25 08:07 | W.PN.CD ---
Today's Communication / Plan
-
increase lasix to 40mg IV bid
trend Cr and weight
Impression / Plan
-
I/P: 89M with CAD s/p CABG 2005 (JJ-LAD, VG-D1, VG-PDA), mid RCA stent 2004, paroxysmal atrial flutter, persistent atrial fibrillation (on apixaban), HTN, dyslipidemia, mild/mod , mild AR, mild/mod TR, chronic HFpEF, CKD3b, SIMÓN (cannot tolerate
CPAP), and COPD, who presented with a chief complaint of shortness of breath.
Outpatient materials recycler: Dr. Celestin
HFpEF, acute on chronic: severe, requiring hospitalization, with close monitoring of labs, tele
-echo 08/24: EF 60-65%, mod AR and , mild/mod TR, PASP 45-50
- Daily dosing of furosemide was associated with GARDENIA and syncope in the past.
-to discuss M/W/F dosing on d/c
- increase lasix to 40mg IV bid
- GDMT limited by renal function
Atrial fibrillation, permanent
- cont diltiazem 120mg daily
- [id number] score of 5
- Oral anticoagulation: Apixaban 2.5 mg twice daily (age 89, creatinine >1.5), denies missed doses and abnormal bleeding
COPD, acute on chronic - per primary service
CAD
- CABG 2005 (JJ-LAD, VG-D1, VG-PDA), PCI mRCA (2004)
- Remains stable without chest pain.
- No ASA, since on apixaban
Mechanical fall with 11th left rib fracture
CKD3b, with proteinuria, follow with diuresis, follows with nephrology as an outpatient
Valvular HD: moderate and AR, mild/mod TR
Anemia of chronic disease
Former smoker, 100 pack year, continued cessation recommended
Dyslipidemia, stable on rosuvastatin, continue
SIMÓN, CPAP intolerant
Physical Exam
Vital Signs/Labs
Vital Signs
Temp Pulse Resp BP Pulse Ox
98.2 F 85 20 145/73 91
08/25/24 07:57 08/25/24 07:57 08/25/24 07:57 08/25/24 07:57 08/25/24 07:57
08/24/24 08/25/24 08/26/24
06:59 06:59 06:59
Actual Weight 75.296 kg 74.298 kg
08/23/24 07:27
08/25/24 06:41
Magnesium 2.1 mg/dl (1.6-2.3) 08/24/24 06:22
08/22/24
12:27
Yqt-F-Atxtwqztvpd Pept 5920
LAB Results
08/22/24
12:27
Troponin I 0.022
Physical Exam
Constitutional: No acute distress and Comfortable
EENT: Moist mucous membranes
Cardiovascular: Pedal edema is absent, Rhythm/rate is irregular, JVD present and Systolic murmur present
Respiratory: Respiratory effort normal
Neuro/Psych: AO x 3
Data Reviewed
-
Date of Service: August 25, 2024
EKG: Other (Tele: A fib 80s-90s)
Labs: Labs Reviewed by me
[2024-08-25] MEDS: ELIQUIS 2.5 MG PO ×2 (08:14→21:17)
[2024-08-25] MEDS: SODIUM BICARBONATE 650 MG PO ×3 (08:14→21:17)
[2024-08-25] MEDS: MUCINEX 600 MG PO ×2 (08:15→21:17)
[2024-08-25] MEDS: CARDIZEM CD 120 MG PO (08:15)
[2024-08-25] MEDS: LASIX 40 MG IV ×2 (08:15→15:40)
[2024-08-25 08:16] LABS: Glucose - Point of Care 119 mg/dl (70-99)
[2024-08-25] MEDS: LASIX IV (09:16)
[2024-08-25 12:32] LABS: Glucose - Point of Care 101 mg/dl (70-99)
--- NOTE | 2024-08-25 14:38 | W.PN.HOSP.TC ---
Today's Communication/Plan
-
Continue IV diuresis, Eliquis, Cardizem
Assessment / Plan
Assessment / Plan
Physical Exam
General: Not in acute distress
HEENT: Normocephalic and Moist mucous membranes
Respiratory: Rhonchi bilaterally
Cardiac: S1/S2 and Irregular Rhythm. Systolic Murmur present.
GI: Soft and Non Tender. Positive bowel sounds.
Musculoskeletal: No Cyanosis and Other (+1 edema bilateral lower extremities)
Skin: Warm, Dry and Other (Ecchymosis left flank )
Neuro: Awake, Alert and Nonfocal/grossly intact
Psych: Calm
Assessment/Plan
89-year-old male with past medical history of HFpEF, permanent atrial fibrillation on Eliquis, hypertension, hyperlipidemia, obstructive sleep apnea, COPD, CAD status post CABG, CKD 3B, gout presenting with shortness of breath and cough with
exertion and 6 pound weight gain and lower extremity edema after noncompliance with diet while on vacation recently. Also with fall 3 days ago with left flank pain. On admission, vital signs unremarkable but was getting tachycardic and tachypneic
with exertion; coarse rhonchi was present on examination. Labs showed cardiac BNP of 5900. Creatinine of 1.6 better than baseline. Chest x-ray showed interstitial edema. CT abdomen pelvis showed displaced fracture of the posterior left 11th rib with
mild inflammatory stranding within the overlying soft tissue. There is mild bronchial wall thickening within both posterior lobes some peripheral nodules infectious or inflammatory.
Acute on Chronic HFpEF: weight gain, SOB, elevated proBNP, and interstitial pulmonary edema
-Consult Cardiology
-Echo noted with LVEF 60 to 65%, enlarged right ventricular size, severely dilated left and right atria, moderate aortic stenosis, moderate aortic regurgitation, mild to moderate tricuspid regurgitation
-Continue Lasix 40mg IV BID (increased from daily previously given while inpatient) -- (please note: daily dosing of furosemide was associated with GARDENIA and syncope in the past)
-Monitor Is&Os and Daily Weights
Recent Fall -- suspected combination of lower edema, weight gain, SOB, CHF exacerbation
Left 11th Rib Fracture
-Continue Tylenol and Oxycodone prn
-Avoid Lidocaine patch given significant bruising
COPD, mild acute exacerbation
-Continue budesonide
-Continue DuoNeb QID and PRN
-Add Mucinex
-Consider steroids if breathing is no improving
Coronary Artery Disease s/p CABG and Stent
-Stable
-Continue Eliquis and statin
Persistent Atrial Fibrillation with RVR
-Continue Eliquis 2.5 mg BID
-Continue Cardizem CD 120 mg daily
Hyperlipidemia
-Continue Crestor
CKD Stage III
-Monitor Creatinine closely while on diuretics
-Sees nephrology outpatient
Chronic Metabolic Acidosis
-Continue sodium bicarbonate
Aortic stenosis, moderate, peak/mean gradients 42/22 mmHg, mild to moderate AR
Anemia of chronic disease
Former smoker, 100 pack year, continued cessation recommended
SIMÓN
-CPAP intolerant
DVT Prophylaxis: Eliquis
Code Status: Full Code
Anticipated Discharge: 24 - 48 hours
Subjective/Interval History
-
Date of Service: August 25, 2024
Patient was seen and examined. He denied any complaints, except for some cough.
Objective Data
-
Labs:
Laboratory Results
08/25/24
06:41
Sodium 139
Potassium 3.5
Chloride 104
Carbon Dioxide 26
BUN 38 H
Creatinine 1.7 H
Glucose 117 H
Calcium 9.0
Vital Signs:
Vital Signs
Temp Pulse Resp BP Pulse Ox
98.6 F 90 18 141/70 93
08/25/24 11:26 08/25/24 11:26 08/25/24 11:26 08/25/24 11:26 08/25/24 11:26
I&O
08/24/24 08/25/24 08/26/24
06:59 06:59 06:59
Intake Total 960 / 960 1140 / 1140
Output Total 1100 / 1100 800 / 800 600 / 600
Balance -140 / -140 340 / 340 -600 / -600
--- NOTE | 2024-08-25 14:38 | CM ---
Addendum entered by Ree Worrell 08/25/24 15:20:
PT/OT rec SNF
CM met with patient - called daughter Michaelle to discuss options - she declines SNF & was agreeable to VN
tt hospitalist
Notified liaison and referral placed
PLAN: Home with [facility], daughter declines SNF
daughter states she will transport
Original Note:
Patient seen at bedside
CM consult completed for [facility]N
prefer [facility]
await PT/OT eval
PLAN: Await PT rec
--- NOTE | 2024-08-25 15:50 | VNURNOTE ---
Home Health Liaison met with [facility] at bedside [facility], schedule and homebound status. He requested this author speak w/his daughter Michaelle. Call placed to daughter. She is agreeable and understands that visits at home
will be 2-3 x per week to assess and teach medical management. Patient lives with his granddaughter, has a small dog. Is agreeable to pet policy. [facility] .
[facility]
[2024-08-25] MEDS: CRESTOR 40 MG PO (17:11)
[2024-08-25] MEDS: ZYLOPRIM 300 MG PO (21:21)
[2024-08-25 22:42] LABS: Glucose - Point of Care 105 mg/dl (70-99)
[2024-08-26 03:39] VITALS: BP 140/87
[2024-08-26] MEDS: DUONEB 3 ML INH (06:04)
[2024-08-26] MEDS: PULMICORT 0.5 MG INH (06:04)
[2024-08-26 06:42] VITALS: BMI 26.0
[2024-08-26 07:31] VITALS: BP 132/79
[2024-08-26 08:12] LABS: Blood Urea Nitrogen 42 mg/dl (9-20); Carbon Dioxide 23 mmol/L (22-30); Chloride 101 mmol/L (98-107); Estimated Creatinine Clearance 24 ml/min; Glucose 124 mg/dl (70-99); Potassium 3.3 mmol/L (3.5-5.1); Sodium 139 mmol/L (135-145); eGFR 33.51
--- NOTE | 2024-08-26 09:12 | W.PN.CD ---
Today's Communication / Plan
-
I spoke to daughter: HF exacerbation was due to diet noncompliance, so lasix can remain prn on d/c.
please call us back with additional questions
Impression / Plan
-
I/P: 89M with CAD s/p CABG 2005 (JJ-LAD, VG-D1, VG-PDA), mid RCA stent 2004, paroxysmal atrial flutter, persistent atrial fibrillation (on apixaban), HTN, dyslipidemia, mild/mod , mild AR, mild/mod TR, chronic HFpEF, CKD3b, SIMÓN (cannot tolerate
CPAP), and COPD, who presented with a chief complaint of shortness of breath.
Outpatient philosophy lecturer: Dr. Celestin
HFpEF, acute on chronic: severe, improved s/p IV lasix
-echo 08/24: EF 60-65%, mod AR and , mild/mod TR, PASP 45-50
- Daily dosing of furosemide was associated with GARDENIA and syncope in the past.
- GDMT limited by renal function
-I spoke to daughter: HF exacerbation was due to diet noncompliance, so lasix can remain prn on d/c.
Atrial fibrillation, permanent
- cont diltiazem 120mg daily
- [id number] score of 5
- Oral anticoagulation: Apixaban 2.5 mg twice daily (age 89, creatinine >1.5), denies missed doses and abnormal bleeding
COPD, acute on chronic - per primary service
CAD
- CABG 2005 (JJ-LAD, VG-D1, VG-PDA), PCI mRCA (2004)
- Remains stable without chest pain.
- No ASA, since on apixaban
Mechanical fall with 11th left rib fracture
CKD3b, with proteinuria, follow with diuresis, follows with nephrology as an outpatient
Valvular HD: moderate and AR, mild/mod TR
Anemia of chronic disease
Former smoker, 100 pack year, continued cessation recommended
Dyslipidemia, stable on rosuvastatin, continue
SIMÓN, CPAP intolerant
Physical Exam
Vital Signs/Labs
Vital Signs
Temp Pulse Resp BP Pulse Ox
98.0 F 98 16 132/79 89
08/26/24 07:31 08/26/24 07:31 08/26/24 07:31 08/26/24 07:31 08/26/24 07:31
08/25/24 08/26/24 08/27/24
06:59 06:59 06:59
Actual Weight 74.298 kg 73.113 kg
08/23/24 07:27
08/26/24 07:19
Magnesium 2.1 mg/dl (1.6-2.3) 08/24/24 06:22
08/22/24
12:27
Knp-Q-Clewqlwrogy Pept 5920
Physical Exam
Constitutional: No acute distress and Comfortable
EENT: Moist mucous membranes
Cardiovascular: Pedal edema is absent, JVD pressure is normal, Rhythm/rate is irregular and Systolic murmur present
Respiratory: Respiratory effort normal and Lungs clear to auscul.
Neuro/Psych: Alert and AO x 3
Data Reviewed
-
Date of Service: August 26, 2024
EKG: Other (Tele: A fib 80s, PVC's)
Labs: Labs Reviewed by me
[2024-08-26] MEDS: ELIQUIS 2.5 MG PO (09:29)
[2024-08-26] MEDS: CARDIZEM CD 120 MG PO (09:29)
[2024-08-26] MEDS: MUCINEX 600 MG PO (09:29)
[2024-08-26] MEDS: SODIUM BICARBONATE 650 MG PO (09:30)
[2024-08-26] MEDS: LASIX IV (10:07)
[2024-08-26] MEDS: KCL 40 MEQ PO (10:18)
--- NOTE | 2024-08-26 10:20 | CM ---
Patient seen at bedside
PT/OT rec SNF - daughter declines
IMM reviewed & signed. In chart
PLAN: Home with [facility], daughter declines SNF
daughter states she will transport
[2024-08-26 11:24] VITALS: BP 140/75
--- NOTE | 2024-08-26 12:46 | W.PN.HOSP.TC ---
Today's Communication/Plan
-
Discharge today
Assessment / Plan
Assessment / Plan
Physical Exam
General: Not in acute distress
HEENT: Normocephalic and Moist mucous membranes
Respiratory: Rhonchi bilaterally - IMPROVED
Cardiac: S1/S2 and Irregular Rhythm. Systolic Murmur present.
GI: Soft and Non Tender. Positive bowel sounds.
Musculoskeletal: No Cyanosis and Other (+1 edema bilateral lower extremities)
Skin: Warm, Dry and Other (Ecchymosis left flank )
Neuro: Awake, Alert and Nonfocal/grossly intact
Psych: Calm
Assessment/Plan
89-year-old male with past medical history of HFpEF, permanent atrial fibrillation on Eliquis, hypertension, hyperlipidemia, obstructive sleep apnea, COPD, CAD status post CABG, CKD 3B, gout presenting with shortness of breath and cough with
exertion and 6 pound weight gain and lower extremity edema after noncompliance with diet while on vacation recently. Also with fall 3 days ago with left flank pain. On admission, vital signs unremarkable but was getting tachycardic and tachypneic
with exertion; coarse rhonchi was present on examination. Labs showed cardiac BNP of 5900. Creatinine of 1.6 better than baseline. Chest x-ray showed interstitial edema. CT abdomen pelvis showed displaced fracture of the posterior left 11th rib with
mild inflammatory stranding within the overlying soft tissue. There is mild bronchial wall thickening within both posterior lobes some peripheral nodules infectious or inflammatory.
Acute on Chronic HFpEF: weight gain, SOB, elevated proBNP, and interstitial pulmonary edema
-Consult Cardiology
-Echo noted with LVEF 60 to 65%, enlarged right ventricular size, severely dilated left and right atria, moderate aortic stenosis, moderate aortic regurgitation, mild to moderate tricuspid regurgitation
-Status post IV Lasix
-On discharge, Lasix can remain PRN (since heart failure exacerbation was due to diet noncompliance) -- (please note: daily dosing of furosemide was associated with G[place]EN[place] and syncope in the past)
-Monitor Is&Os and Daily Weights
Recent Fall -- suspected combination of lower edema, weight gain, SOB, CHF exacerbation
Left 11th Rib Fracture
-Continue Tylenol and Oxycodone prn
-Avoid Lidocaine patch given significant bruising
COPD, mild acute exacerbation
-Continue budesonide
-Continue DuoNeb QID and PRN
-Add Mucinex
-Consider steroids if breathing is no improving
Coronary Artery Disease s/p CABG and Stent
-Stable
-Continue Eliquis and statin
Persistent Atrial Fibrillation with RVR
-Continue Eliquis 2.5 mg BID
-Continue Cardizem CD 120 mg daily
Hypokalemia
Hyperlipidemia
-Continue Crestor
CKD Stage III
-Monitor Creatinine closely while on diuretics
-Sees nephrology outpatient
Chronic Metabolic Acidosis
-Continue sodium bicarbonate
Aortic stenosis, moderate, peak/mean gradients 42/22 mmHg, mild to moderate AR
Anemia of chronic disease
Former smoker, 100 pack year, continued cessation recommended
SIMÓN
-CPAP intolerant
Anemia of chronic disease
Former smoker, 100 pack year, continued cessation recommended
Dyslipidemia, stable on rosuvastatin, continue
SIMÓN, CPAP intolerant
DVT Prophylaxis: Eliquis
Code Status: Full Code
More than 30 minutes spent in discharge including
Final examination of the patient
Summarizing hospital stay
Instructions for continuing care to all relevant caregivers
Preparation of discharge records, prescriptions, and referral forms
Total time spent (in minutes): 37
Anticipated Discharge: Today
Subjective/Interval History
-
Date of Service: August 26, 2024
Patient was seen and examined. He denied any shortness of breath or chest or any other complaints.
Objective Data
-
Labs:
Laboratory Results
08/26/24
07:19
Sodium 139
Potassium 3.3 L
Chloride 101
Carbon Dioxide 23
BUN 42 H
Creatinine 1.9 H
Glucose 124 H
Calcium 9.0
Vital Signs:
Vital Signs
Temp Pulse Resp BP Pulse Ox
97.5 F 91 21 140/75 95
08/26/24 11:24 08/26/24 11:24 08/26/24 11:24 08/26/24 11:24 08/26/24 11:33
I&O
08/25/24 08/26/24 08/27/24
06:59 06:59 06:59
Intake Total 1140 / 1140 960 / 960
Output Total 800 / 800 1950 / 1950
Balance 340 / 340 -990 / -990
--- NOTE | 2024-08-26 13:28 | W.DCSUMMARY ---
Discharge Summary
Discharge Data
Date of Admission: 08/22/24
Date of Discharge: 08/26/24
Total time spent discharging patient (in min): 37
-
Pending Results: No
Hospital Course
89-year-old male with past medical history of HFpEF, permanent atrial fibrillation on Eliquis, hypertension, hyperlipidemia, obstructive sleep apnea, COPD, CAD status post CABG, CKD 3B and gout presented with shortness of breath and cough with
exertion and 6 pound weight gain and lower extremity edema after noncompliance with diet while on vacation recently. Patient had also fallen 3 days, prior to presentation, with resulting left flank pain. Initial vital signs were unremarkable, but
patient was getting tachycardic and tachypneic with exertion, and there were coarse rhonchi on examination. Labs showed cardiac BNP of 5900. Chest x-ray showed interstitial edema. CT Abdomen Pelvis showed displaced fracture of the posterior left
11th rib with mild inflammatory stranding within the overlying soft tissue; there is mild bronchial wall thickening within both posterior lobes some peripheral nodules infectious or inflammatory.
Patient was admitted with acute heart failure exacerbation and started on intravenous Lasix. Cardiology was consulted. Patient was started on Cardizem for atrial fibrillation with rapid ventricular response. 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 Patient's clinical condition improved. Since patient's heart failure exacerbation was due to non-compliance with diet, patient was placed on an as needed (instead of scheduled) Lasix
regimen on discharge.
Discharge Plan
-
Patient Disposition: Home with Home Care
Discharge Diagnosis/Procedures: Acute on Chronic HFpEF: weight gain, SOB, elevated proBNP, and interstitial pulmonary edema
Recent Fall -- suspected from combination of lower edema, weight gain, shortness of breath, heart failure exacerbation
Left 11th Rib Fracture
COPD, mild acute exacerbation
Coronary Artery Disease status post CABG and Stent
Persistent Atrial Fibrillation with Rapid Ventricular Response
Hypokalemia
Hyperlipidemia
CKD Stage III
Chronic Metabolic Acidosis
Aortic stenosis, moderate, peak/mean gradients 42/22 mmHg, mild to moderate AR
Anemia of chronic disease
Former smoker, 100 pack year, continued cessation recommended
SIMÓN
Anemia of chronic disease
Former smoker, 100 pack year, continued cessation recommended
Dyslipidemia, stable on rosuvastatin, continue
SIMÓN, CPAP intolerant
Chest X-Ray Results (as per radiologist's report):
'IMPRESSION:
Findings suggestive of interstitial edema. No pleural effusions. No focal airspace disease.'
Abdomen/Pelvis CT Results (as per radiologist's report):
'FINDINGS:
LOWER CHEST: Extensively calcified aortic valve. Moderate coronary artery calcifications. Mild bronchial wall thickening within both posterior lower lobes with some peripheral bronchovascular nodules within the posterior right lower lobe, likely
infectious or inflammatory nature. Unchanged subpleural nodule within the right middle lobe.
LIVER: Within normal limits.
GALLBLADDER: Cholelithiasis.
BILE DUCTS: Within normal limits.
PANCREAS: Within normal limits.
SPLEEN: Within normal limits.
ADRENALS: Within normal limits.
KIDNEYS/URETERS: No hydronephrosis or nephrolithiasis.
BOWEL: No obstruction or wall thickening. Small hiatal hernia. Mild to moderate sigmoid diverticulosis.
PERITONEUM: No ascites or free air.
REPRODUCTIVE: Moderately enlarged prostate gland.
BLADDER: Within normal limits.
VESSELS: Heavily calcified abdominal aorta and iliac arteries.
RETROPERITONEUM: No retroperitoneal or pelvic lymphadenopathy.
ABDOMINAL WALL: No hernias. Mild amount of inflammatory stranding within the left flank.
BONES: Age-indeterminate mild to moderate compression deformity of T12 vertebral body. Moderate to severe disc disease within the lumbar spine at L2-3 and L3-4. Mild to moderate multilevel central canal stenosis within the lumbar spine. Acute,
mildly displaced fracture of the posterior left 11th rib.
IMPRESSION:
1. Acute, mildly displaced fracture of the posterior left 11th rib with mild inflammatory stranding within the overlying soft tissue.
2. Mild bronchial wall thickening within both posterior lower lobes with some peripheral nodules within the posterior right lower lobe, likely infectious or inflammatory nature.
3. Cholelithiasis.
4. Additional findings above.'
Condition: Fair
Diet: Low Fat, Low Cholesterol, Low Sodium, 2 Gram Sodium, Diabetic, Carb Controlled and Restrict fluids to 64 oz
Activity: As tolerated
Blood Work: CBC, BMP and Magnesium check with primary care provider's office in 3 days
Other Services: VN
Specialty Instructions: Weigh Daily- Call MD for wt gain/loss 3 lbs overnight/5 lbs in 1 week
Instructions: *CBC Heart Failure Instructions
Referrals:
Miryam Pina, DO [Family Provider] - in less than 1 week
Additional Discharge Medication Instructions: Diltiazem is a new medication.
Lasix dose is 20 mg PO daily NEEDED for weight gain of 3 lbs overnight or 5 lbs in 1 week (you will need to call your primary care physician office about this if this happens)
Potassium 10 meq daily for 4 days -- is a new medication
Prescriptions:
New
diltiazem HCl 120 mg Capsule,Extended Release 24hr
120 mg PO DAILY Qty: 30 2RF
guaifenesin 600 mg Tablet Extended Release 12hr
600 mg PO Q12 Qty: 14 0RF
furosemide 20 mg tablet
20 mg PO DAILY PRN (Reason: Weight gain) Qty: 30 0RF
Rx Instructions:
Lasix 20 mg PO daily NEEDED for weight gain of 3 lbs overnight or 5 lbs in 1 week
potassium chloride 10 mEq tablet extended release
10 meq PO DAILY Qty: 4 0RF
Continued
cyanocobalamin (vitamin B-12) 1,000 MCG tablet
1,000 mcg PO DAILY
budesonide 0.5 MG/2 ML suspension for nebulization
0.5 mg inhalation R BID
rosuvastatin [Crestor] 40 MG tablet
40 mg PO QPM
ipratropium-albuterol 0.5 mg-3 mg(2.5 mg base)/3 mL Solution For Nebulization
3 ml INHALATION R BID
allopurinol 300 mg Tablet
300 mg PO HS
omega 5-qey-tbc-fish oil [Fish Oil] 1,200 (144-216) mg Capsule
1,200 cap PO DAILY Qty: 0 0RF
Eliquis 2.5 mg Tablet
2.5 mg PO BID Qty: 0 0RF
acetaminophen [Tylenol Extra Strength] 500 mg Tablet
1,000 mg PO BIDPRN PRN (Reason: mild pain)
sodium bicarbonate 650 mg Tablet
650 mg PO TID
Discharge Orders:
Discharge Patient (As Directed); Ordered 08/26/24
Ordered By: Enio Ortiz
Discharge Date and Time
Discharge Date/Time: 08/26/24 15:19
Print Language: OCCITAN
[2024-08-26 15:00] VITALS: BP 130/80
--- NOTE | 2024-08-29 12:47 | W.HF.CON ---
Heart Failure
- LV Function
Left ventricular function study result: LV Ejection fraction >/= 50%
Ejection Fraction Percentage: 60-65
- ARNI
Patient already on ARNI: No
Heart Failure ARNI Not Indicated: LV Ejection Fraction >/= 40%
- ACEI/ARB
Patient already on ACEI/ARB: No
Heart Failure ACEI/ARB Not Indicated: LV Ejection Fraction > 40%
- Beta Jc
Patient already on Evidence Based Beta Jc: No
Heart Failure Evidence Based Beta Jc Not Indicated: LV Ejection Fraction > 40%
- Mineralocorticord Receptor Antagonist
Patient already on MRA: No
Heart Failure MRA Not Indicated: LV Ejection Fraction > 40%
- SGLT-2 Inhibitor
Patient already on SGLT-2 Inhibitor: No
Heart Failure SGLT-2 Inhibitor Contraindication: Patient Refusal
- Afib Anticoagulation
Patient already on Anticoagulation for Afib: Yes
- NYHA CHF Classification
NYHA CHF Classification Level: Class III - Symptoms w/ min exertion, interferes w/ nml daily activity
- ACC/AHA Stage
ACC/AHA Stage: Stage C: Symptomatic Heart Failure
== END 2024-08-26 15:19 | disposition home health service (06) | DRG 291 ==
LOC: 3 WEST ACU 17:59
PROVIDERS: Physician Assistant; Physician Assistant Medical; ADMITTING PHYSICIAN Hospitalist; ATTENDING PHYSICIAN Hospitalist; CONSULT PHYSICIAN Internal Medicine Cardiovascular Disease; EMERGENCY PHYSICIAN Emergency Medicine; FAMILY PHYSICIAN Family Medicine
DX: I13.0 Hypertensive heart and chronic kidney disease with heart failure and stage 1 through stage 4 chronic kidney disease, or unspecified chronic kidney disease (principal); I50.33 Acute on chronic diastolic (congestive) heart failure; S22.32XA Fracture of one rib, left side, initial encounter for closed fracture; J44.1 Chronic obstructive pulmonary disease with (acute) exacerbation; E87.22 Chronic metabolic acidosis; I48.19 Other persistent atrial fibrillation; N18.32 Chronic kidney disease, stage 3b; I45.10 Unspecified right bundle-branch block; S30.1XXA Contusion of abdominal wall, initial encounter; M10.9 Gout, unspecified; I35.1 Nonrheumatic aortic (valve) insufficiency; E78.00 Pure hypercholesterolemia, unspecified; I25.10 Atherosclerotic heart disease of native coronary artery without angina pectoris; G47.33 Obstructive sleep apnea (adult) (pediatric); E87.6 Hypokalemia; D63.1 Anemia in chronic kidney disease; I35.0 Nonrheumatic aortic (valve) stenosis; W01.0XXA Fall on same level from slipping, tripping and stumbling without subsequent striking against object, initial encounter; Z87.891 Personal history of nicotine dependence; Z91.119 Patient's noncompliance with dietary regimen due to unspecified reason; Z95.1 Presence of aortocoronary bypass graft; Z91.148 Patient's other noncompliance with medication regimen for other reason; Z95.5 Presence of coronary angioplasty implant and graft; Z79.01 Long term (current) use of anticoagulants; Z79.51 Long term (current) use of inhaled steroids
CPT/HCPCS: 71046; 74176; 80048; 80053; 82962; 83735; 83880; 84443; 84484; 85025; 85027; 93005; 93306; 94640; 96374; 97163; 97167; 99285

== ENCOUNTER 2024-09-26 10:31 | Emergency (ER) | payer OTHER, SELFPAY ==
[2024-09-26 10:37] VITALS: BP 134/67
[2024-09-26 11:12] VITALS: BMI 27.5
--- NOTE | 2024-09-26 12:10 | ED.MUSCINJ ---
HPI-Injury
General
Chief Complaint: Fall
Source: patient
Exam Limitations: none
Time Seen by Provider: 09/26/24 11:55
History of Present Illness-Injury
Initial Injury comments:
89-year-old male on Eliquis presents for evaluation after a fall he sustained 3 days ago. Initially when he fell he hit his face. He was evaluated at another hospital with CT of the head face and cervical spine. These were negative. He held his
Eliquis for the next 2 days. He presents today with increased pain to the right wrist and left knee. He is having trouble bearing weight on the left knee. No other complaints at this time
Past History
Past History
ED Past Medical History: Arrthythmia, CAD, COPD, HTN, Hypercholesterolemia and Other (sleep apnea)
ED Past Surgical History: Cardiac (CABG, stents) and Orthopedic (Left knee surgery 1995 bilateral carpal tunnel surgeries)
Social History
Tobacco: Former smoker
Alcohol: Occasional
Drug: None
Personal:
Living: with family
Employment: Not employed
Family History
Family History: Hypertension
Phy Exam
Physical Exam
Physical Exam:
General: Well-appearing male no acute respiratory distress
HEENT: Normocephalic multiple areas of contusion and ecchymosis
Musculoskeletal exam: The spine is nontender. He is swollen and tender about the right wrist and tender about the left knee. No effusion in the left knee. No deformities
Extremities: No cyanosis or edema
Skin: Warm no rash
Injury Course
Orders/Labs/Results
Orders:
Orders
09/26/24 10:41
CR Knee - Left 4 Or More View* Urgent
Comment:
Reason For Exam: pain, swelling, recent fall
09/26/24 10:42
CR Wrist - Right Min 3 Views Urgent
Comment:
Reason For Exam: pain, swelling, recent fall
09/26/24 12:21
Knee Immobilizer Left-Treatmen ONCE
MDM/Problems Addressed
Differential Diagnosis Includes:
Fall with left knee and right wrist pain. Consider sprain versus fracture versus dislocation versus contusion
\\X-rays right wrist and left knee pending
*Critical Care Note
Total Time (30-74mins, 75-104mins- exclusive of procedures): Not Applicable
Update Note
Update Note:
X-ray left knee negative for fracture. Suspect contusion or sprain of the knee. Patient given knee immobilizer and recommended that he use a walker. Stable for discharge
ED Attending Note
-
Portions of this chart may have been created with voice recognition software.� Occasional wrong word or��sound alike� substitutions may have occurred due to the inherent limitations of voice recognition software.
Discharge Plan
Departure
Patient Disposition: Home (Routine Discharge)
Date of Disposition: 09/26/24
Time of Disposition: 14:27
Patient with high blood pressure during this ER visit?: No
Discharge Problem:
Contusion
Instructions: Contusion (DC)
Prescriptions:
No Action
cyanocobalamin (vitamin B-12) 1,000 MCG tablet
1,000 mcg PO DAILY
budesonide 0.5 MG/2 ML suspension for nebulization
0.5 mg inhalation R BID
rosuvastatin [Crestor] 40 MG tablet
40 mg PO QPM
ipratropium-albuterol 0.5 mg-3 mg(2.5 mg base)/3 mL Solution For Nebulization
3 ml INHALATION R BID
allopurinol 300 mg Tablet
300 mg PO HS
omega 2-nsx-avh-fish oil [Fish Oil] 1,200 (144-216) mg Capsule
1,200 cap PO DAILY Qty: 0 0RF
Eliquis 2.5 mg Tablet
2.5 mg PO BID Qty: 0 0RF
acetaminophen [Tylenol Extra Strength] 500 mg Tablet
1,000 mg PO BIDPRN PRN (Reason: mild pain)
sodium bicarbonate 650 mg Tablet
650 mg PO TID
diltiazem HCl 120 mg Capsule,Extended Release 24hr
120 mg PO DAILY Qty: 30 2RF
guaifenesin 600 mg Tablet Extended Release 12hr
600 mg PO Q12 Qty: 14 0RF
furosemide 20 mg tablet
20 mg PO DAILY PRN (Reason: Weight gain) Qty: 30 0RF
Rx Instructions:
Lasix 20 mg PO daily NEEDED for weight gain of 3 lbs overnight or 5 lbs in 1 week
potassium chloride 10 mEq tablet extended release
10 meq PO DAILY Qty: 4 0RF
Referrals:
Miryam Pina DO [Family Provider] -
Activity Restrictions/Additional Instructions:
Use the brace for support when ambulating. Use walker when ambulating. Continue with Tylenol or ice to the sore spots. Return if worse otherwise follow-up with your doctor
Interventions
Interventions:
*Risk Screen - Suicide Last Done: 09/26/24 10:37
*General Assessment Last Done: 09/26/24 10:37
ED-Musculoskeletal Assessment Last Done: 09/26/24 11:14
ED- Neurological Assessment Last Done: 09/26/24 11:12
ED-Skin Assessment Last Done: 09/26/24 11:12
Discharge Date and Time
Print Language: SWEDISH
[2024-09-26 13:33] VITALS: BP 132/68
== END 2024-09-26 15:13 | disposition home or self-care (01) ==
LOC: EMR 10:31
PROVIDERS: EMERGENCY PHYSICIAN Emergency Medicine; FAMILY PHYSICIAN Family Medicine
DX: S00.83XA Contusion of other part of head, initial encounter (principal); S40.022A Contusion of left upper arm, initial encounter; S40.021A Contusion of right upper arm, initial encounter; S80.12XA Contusion of left lower leg, initial encounter; S80.11XA Contusion of right lower leg, initial encounter; M25.531 Pain in right wrist; M25.562 Pain in left knee; M79.89 Other specified soft tissue disorders; W19.XXXA Unspecified fall, initial encounter; I25.10 Atherosclerotic heart disease of native coronary artery without angina pectoris; I10 Essential (primary) hypertension; J44.9 Chronic obstructive pulmonary disease, unspecified; E78.00 Pure hypercholesterolemia, unspecified; G47.30 Sleep apnea, unspecified; Z79.01 Long term (current) use of anticoagulants; Z95.1 Presence of aortocoronary bypass graft; Z95.5 Presence of coronary angioplasty implant and graft; Z87.891 Personal history of nicotine dependence
CPT/HCPCS: 99284; 29505; 73110; 73564

== ENCOUNTER 2024-10-12 19:11 | Inpatient (IN) | payer OTHER, SELFPAY ==
[2024-10-12 16:42] VITALS: BP 125/75
[2024-10-12] MEDS: SOLU-MEDROL PF 125 MG IV (17:22)
[2024-10-12] MEDS: DUONEB 3 ML INH ×2 (17:22→21:07)
[2024-10-12 17:29] LABS: % Basophils 0.3 % (0-2); % Eosinophils 0.3 % (0-6); % Immature Granulocytes 1.6 % (0-0.5); % Lymphocytes 8.1 % (20.5-51.1); % Monocytes 12.9 % (1.7-9.3); % Neutrophils 76.8 % (42.2-75.2); Absolute Immature Granulocytes 0.2 10^3/uL (0-0.05); Absolute Lymphocytes 0.8 10^3/uL (1.2-3.4); Absolute Monocytes 1.3 10^3/uL (0.1-0.6); Absolute Neutrophils 7.6 10^3/uL (1.4-6.5); Hematocrit 38.2 % (39.0-52.0); Hemoglobin 12.3 g/dL (13.0-18.0); Mean Corp Hgb Conc. 32.2 g/dL (33.0-37.0); Mean Corpuscular Hgb 28.7 pg (27.0-31.0); Mean Corpuscular Volume 89.3 fL (80.0-94.0); Mean Platelet Volume 10.5 fL (7.4-10.4); Nucleated Red Blood Cells % 0 % (-); Platelet Count 200 10^3/uL (130-400); Red Blood Cell Count 4.28 10^6/uL (4.70-6.10); White Blood Cell Count 9.9 10^3/uL (4.8-10.8)
[2024-10-12 17:30] VITALS: BP 140/77
[2024-10-12 17:48] LABS: COVID-19 Antigen Negative (Negative)
[2024-10-12 17:49] LABS: ALT (SGPT) 23 U/L (0-50); AST (SGOT) 27 U/L (17-59); Albumin 3.8 g/dl (3.5-5.0); Alkaline Phosphatase 91 U/L (38-126); Blood Urea Nitrogen 41 mg/dl (9-20); Calcium 9.2 mg/dl (8.4-10.2); Carbon Dioxide 21 mmol/L (22-30); Chloride 110 mmol/L (98-107); Glucose 97 mg/dl (70-99); Potassium 3.9 mmol/L (3.5-5.1); Sodium 141 mmol/L (135-145); Total Bilirubin 1.9 mg/dl (0.2-1.3); Total Protein 6.7 g/dl (6.3-8.2); eGFR 52.84
[2024-10-12 17:58] LABS: NT-proBNP 4170 pg/ml
[2024-10-12 18:00] VITALS: BP 122/81
--- NOTE | 2024-10-12 18:13 | ED.GENMED ---
History of Present Illness
General
Chief Complaint: Breathing Problem
Source: patient, records and family
Exam Limitations: none
Time Seen by Provider: 10/12/24 16:52
Nursing documentation reviewed up to this point in time: agreed with
History of Present Illness
History of Present Illness:
89-year-old male with a past medical history of hypertension, hyperlipidemia, CAD, atrial fibrillation on Eliquis, CHF, COPD who presents to the emergency department with his daughter for evaluation of shortness of breath. Patient started having
shortness of breath last week and it has been progressive since that time. Daughter notes that last week he had a 4 pound weight gain; he is prescribed as needed Lasix and took diuretic last week which improved his weight. Shortness of breath
however did not improve and has actually increased. He is having orthopnea. He has had a dry cough. He was brought to the emergency room for evaluation. He did have some leg swelling last week which seems to have improved. He denies any chest
pain. Denies any fevers or chills. He denies any other complaints.
Past History
Past History
ED Past Medical History: Arrthythmia, CAD, COPD, HTN, Hypercholesterolemia and Other (sleep apnea)
ED Past Surgical History: Cardiac (CABG, stents) and Orthopedic (Left knee surgery 1995 bilateral carpal tunnel surgeries)
Social History
Tobacco: Former smoker
Alcohol: Occasional
Drug: None
Personal:
Living: with family
Employment: Not employed
Family History
Family History: Hypertension
Review of Systems
Review of Systems
All Other Systems: ROS reviewed and negative except as documented in HPI and ROS
Constitutional: Reports weight gain; Denies fever or chills
Respiratory: Reports cough and trouble breathing
Cardiac: Denies chest pain or palpitations
ABD/GI: Denies abdominal pain, nausea or diarrhea
: Denies flank pain
Musculoskeletal: Reports edema; Denies neck pain or back pain
Neurological: Denies dizzy or headache
Phy Exam
Physical Exam
Physical Exam:
General: Awake, alert, oriented x3 although very hard of hearing; no acute distress
Head: Normocephalic, atraumatic
Eyes: Conjunctiva normal, EOMI
Throat: Airway intact, handling secretions
Neck: Trachea midline, no JVD noted
Lungs: Patient has bilateral expiratory wheezing, breath sounds are diminished at the lung bases bilaterally; he has hypoxia to 88% requiring 2 L nasal cannula and mild tachypnea
Heart: Regular rate and irregular rhythm, no murmurs, gallops, or rubs
Abd: Soft, non distended, nontender
Neuro: No gross deficits
Skin: Old abrasion on the forehead
Extremities: Patient has some mild edema in the ankles left slightly greater than right which is chronic; extremities are warm and well-perfused
Scores
Heart Failure Risk
Heart Failure Risk Score: Yes
History of Stroke or TIA: No
History of intubation for respiratory distress: No
Heart rate on ED arrival >/= 110: No
SaO2 <90% on arrival on room air: Yes
HR >/=110 during 3min walk test (or too ill to perform test): Yes
ECG has acute ischemic changes: No
Urea >/=12mmol/L (BUN 33.6mg/dL): Yes
Serum CO2>/=35mmol/L: No
Troponin I or T elevated to VA Level (0.4mg/dL): No
NT-proBNP >/=5,000ng/L (5,000pg/ml): No
HF Risk Score: 4
Admission Status: HIGH RISK 26.1% Consider SNF treatment or admission to hospital
Heart Score for Chest Pain Patients
STEMI patient?: Not applicable
Withdrawal Assessment of Alcohol
Withdrawal Assessment Completed?: Not applicable
Course
Orders/Labs/Results
Orders:
Orders
10/12/24 16:46
Electrocardiogram (*1) Urgent
Reason for Study: Shortness of Breath
EKG- Treatment ONCE
CR Chest - 2 Views Urgent
Comment:
Reason For Exam: shortness of breath, cough
10/12/24 16:53
Ipratropium/Albuterol Sulfate [Duoneb] 3 ml INH R NOW STA
MethylPREDNISolone PF [Solu-Medrol Pf] 125 mg IV NOW STA
10/12/24 17:15
COVID-19 Antigen Urgent
Source: Nasal Swab
Complete Blood Count/With Diff Urgent
Comprehensive Metabolic Panel Urgent
NT-proBNP Urgent
Influenza A+B Rapid Molecular Urgent
YA Source: Nasal Swab
Specimen Description:
10/12/24 18:13
Furosemide [Lasix] 40 mg IV NOW STA
Abnormal Lab Results
10/12/24
17:15
RBC 4.28 L 10^6/uL
(4.70-6.10)
Hgb 12.3 L g/dL
(13.0-18.0)
Hct 38.2 L %
(39.0-52.0)
MCHC 32.2 L g/dL
(33.0-37.0)
RDW 17.0 H %
(11.5-14.5)
MPV 10.5 H fL
(7.4-10.4)
Abs Immat Gran (auto) 0.2 H 10^3/uL
(0-0.05)
Absolute Neuts (auto) 7.6 H 10^3/uL
(1.4-6.5)
Absolute Lymphs (auto) 0.8 L 10^3/uL
(1.2-3.4)
Absolute Monos (auto) 1.3 H 10^3/uL
(0.1-0.6)
Immature Gran % 1.6 H %
(0-0.5)
Neutrophils % 76.8 H %
(42.2-75.2)
Lymphocytes % 8.1 L %
(20.5-51.1)
Monocytes % 12.9 H %
(1.7-9.3)
Chloride 110 H mmol/L
(98-107)
Carbon Dioxide 21 L mmol/L
(22-30)
BUN 41 H mg/dl
(9-20)
Total Bilirubin 1.9 H mg/dl
(0.2-1.3)
10/12/24 17:15
10/12/24 17:15
Vital Signs
Initial and Last Documented VS:
Initial Vital Signs
Temp Pulse Resp BP Pulse Ox
36.3 C 88 25 125/75 88
10/12/24 16:42 10/12/24 16:42 10/12/24 16:42 10/12/24 16:42 10/12/24 16:42
Last Documented Vital Signs
Temp Pulse Resp BP Pulse Ox
36.3 C 83 19 122/81 93
10/12/24 16:42 10/12/24 18:00 10/12/24 18:00 10/12/24 18:00 10/12/24 18:00
MDM/Problems Addressed
Differential Diagnosis Includes:
Pneumonia, CHF, COPD
MDM/Problems Addressed:
89-year-old male presents for evaluation of worsening shortness of breath and cough for the past week; he did have some weight gain that improved after taking his as needed diuretic at home. He arrives to us normotensive, heart rate in the 80s,
tachypneic and hypoxic requiring 2 L nasal cannula. Physical exam as above. Will plan to treat with a DuoNeb and steroids for suspected element of COPD exacerbation. Question some element of CHF as well will check chest x-ray, CBC, CMP, BNP.
Viral swabs. Will reassess after the above.
Labs reviewed: CBC shows marginal anemia, CMP no clinically significant abnormalities. proBNP elevated to 4000. COVID swab and flu swab negative. Chest x-ray reviewed by me does show findings consistent with CHF. Will treat with IV Lasix�will
plan for admission for continued treatment of acute hypoxic respiratory failure secondary to CHF exacerbation and COPD exacerbation. Case discussed with hospitalist for admission.
Chronic conditions affecting care:
CHF, COPD
Acute Exacerbation and/or Progression of Chronic Illness:
Acute CHF treated with diuretic
Acute COPD treated with nebs, steroids
*Radiology
Radiology exam reviewed: preliminary read by ED provider
*Pulse Oximetry
Patient hypoxic: yes (89)
*EKG
Interpreted by ED Provider?: Yes
Heart Rate: 90
Rate: normal
Rhythm: a-fib
[place]: normal axis
Interval: normal interval
QRS Pattern: right bundle branch block
Ischemia: other (Nonspecific T wave abnormalities)
*Critical Care Note
Total Time (30-74mins, 75-104mins- exclusive of procedures): Not Applicable
Data Reviewed
Source: patient, records and family
Patient Management
Discussion with other providers: Hospitalist (Discussed with hospitalist)
Escalation/DeEscalation of care consider admission/obs:
Admission indicated
ED Attending Note
-
Portions of this chart may have been created with voice recognition software.� Occasional wrong word or��sound alike� substitutions may have occurred due to the inherent limitations of voice recognition software.
Discharge Plan
Departure
Patient Disposition: Admit
Date of Disposition: 10/12/24
Time of Disposition: 18:19
Admit to doctor: Ayo
Presentation/result/management discussed w/ accepting MD/DO: Hospitalist
Discharge Problem:
CHF exacerbation, COPD exacerbation, Acute hypoxic respiratory failure
Prescriptions:
No Action
cyanocobalamin (vitamin B-12) 1,000 MCG tablet
1,000 mcg PO DAILY
budesonide 0.5 MG/2 ML suspension for nebulization
0.5 mg inhalation R BID
rosuvastatin [Crestor] 40 MG tablet
40 mg PO QPM
ipratropium-albuterol 0.5 mg-3 mg(2.5 mg base)/3 mL Solution For Nebulization
3 ml INHALATION R BID
allopurinol 300 mg Tablet
300 mg PO HS
omega 4-ofm-kvl-fish oil [Fish Oil] 1,200 (144-216) mg Capsule
1,200 cap PO DAILY Qty: 0 0RF
Eliquis 2.5 mg Tablet
2.5 mg PO BID Qty: 0 0RF
acetaminophen [Tylenol Extra Strength] 500 mg Tablet
1,000 mg PO BIDPRN PRN (Reason: mild pain)
sodium bicarbonate 650 mg Tablet
650 mg PO TID
diltiazem HCl 120 mg Capsule,Extended Release 24hr
120 mg PO DAILY Qty: 30 2RF
guaifenesin 600 mg Tablet Extended Release 12hr
600 mg PO Q12 Qty: 14 0RF
furosemide 20 mg tablet
20 mg PO DAILY PRN (Reason: Weight gain) Qty: 30 0RF
Rx Instructions:
Lasix 20 mg PO daily NEEDED for weight gain of 3 lbs overnight or 5 lbs in 1 week
potassium chloride 10 mEq tablet extended release
10 meq PO DAILY Qty: 4 0RF
Referrals:
Miryam Pina DO [Family Provider, Family Practice]
Interventions
Interventions:
ED- Cardiac Assessment Last Done: 10/12/24 17:20
ED- Pulmonary Assessment Last Done: 10/12/24 17:20
Discharge Date and Time
Print Language: JAPANESE
--- NOTE | 2024-10-12 18:17 | HPS.HSE ---
Family Physician
-
Family Physician: Miryam Pina, DO
Chief Complaint
-
SoB, wt gain
History of Present Illness
HPI
89M HX CAD s/p CABG 2005 mid RCA stent 2004, paroxysmal atrial flutter, persistent atrial fibrillation on apixaban), HTN, dyslipidemia, mild/mod , mild AR, mild/mod TR, chronic HFpEF, CKD3b, SIMÓN , [place] to CPAP and COPD,w SoB and gained 4
lbs over last 4 days.
- Wet cough
- Wheezing and ankle swelling
- POx 88 %
Medical History
Past Medical History
Past Medical History: Reports Other
Additional Past Medical History:
Coronary Artery Disease s/p CABG and Stent
Chronic HFpEF
Paroxysmal Atrial Fibrillation
Essential Hypertension
Hyperlipidemia
CKD Stage III
Chronic Metabolic Acidosis
COPD
Past Surgical History: Reports Other
Additional Past Surgical History:
Coronary Artery Bypass Graft
Left Knee Surgery
Bilateral Carpal Tunnel
Social History
Tobacco: Former Smoker
Alcohol: Occasional
Living: With Family
Family History
Family History: Not pertinent
Allergies / Home Medications
Allergies reflects when Allergies were last updated in [facility].
Home Medications with original date entered in [facility]
Allergy/Medication List:
Allergies
Allergy/AdvReac Type Severity Reaction Status Date / Time
No Known Allergies Allergy Verified 08/22/24 10:26
Home Medications
cyanocobalamin (vitamin B-12) 1,000 mcg tablet 1,000 mcg PO DAILY Supplement 07/04/11
budesonide 0.5 mg/2 mL suspension for nebulization 0.5 mg inhalation R BID Lung/breathing issues 02/28/20
rosuvastatin 40 mg tablet (Crestor) 40 mg PO QPM High cholesterol 02/28/20
allopurinol 300 mg tablet 300 mg PO HS Gout 05/08/23
ipratropium 0.5 mg-albuterol 3 mg (2.5 mg base)/3 mL nebulization soln 3 ml inhalation R BID Lung/Breathing Issues 05/08/23
apixaban 2.5 mg tablet (Eliquis) 2.5 mg PO BID afib #0 tabs 05/11/23
omega 2-vmb-uhm-fish oil 1,200 mg (144 mg-216 mg) capsule (Fish Oil) 1,200 cap PO DAILY Supplement #0 caps 05/11/23
acetaminophen 500 mg tablet (Tylenol Extra Strength) 1,000 mg PO BIDPRN PRN mild pain 05/25/23
sodium bicarbonate 650 mg tablet 650 mg PO TID 08/22/24
Review of Systems
-
A 12 point ROS was completed and negative except as noted: Yes
Constitutional: Denies Fever
Respiratory: Reports Cough and Trouble Breathing
Cardiac: Denies Chest Pain or Palpitations
Physical Exam
Vital Signs
Vital Signs
Temp Pulse Resp BP Pulse Ox
97.4 F 83 19 122/81 93
10/12/24 16:42 10/12/24 18:00 10/12/24 18:00 10/12/24 18:00 10/12/24 18:00
Physical Exam
General: Comfortable and Conversant
HEENT: Anicteric and Moist mucous membranes
Respiratory: Wheezes, Rhonchi and Other (Increased work of breath with minimal activity to scoot up on stretcher)
Cardiac: S1/S2 and Regular Rhythm
GI: Soft and Non Tender
Rectal: Deferred by Provider
Musculoskeletal: No Clubbing, No Cyanosis and Other (+1 edema bilateral lower extremities)
Skin: Warm, Dry and Other (Ecchymosis left flank )
Neuro: Awake, Alert and Nonfocal/grossly intact
Psych: Calm
Laboratory Results
-
10/12/24 17:15
10/12/24 17:15
Laboratory Results
Total Bilirubin 1.9 mg/dl (0.2-1.3) H 10/12/24 17:15
AST 27 U/L (17-59) 10/12/24 17:15
ALT 23 U/L (0-50) 10/12/24 17:15
Alkaline Phosphatase 91 U/L (38-126) 10/12/24 17:15
Data Reviewed
-
Diagnostic Radiology: Image Personally Visualized and interpreted
Medical Tests (Nuc Med, Echo, EKG etc): Report Reviewed by me
Lab Data: Labs Reviewed by me
Old Records: Reviewed
Impression/Plan
-
Vital Signs
Temp Pulse Resp BP Pulse Ox
97.4 F 83 19 122/81 93
10/12/24 16:42 10/12/24 18:00 10/12/24 18:00 10/12/24 18:00 10/12/24 18:00
Labs
08/23/24 08/26/24 10/12/24
07:27 07:19 17:15
Hgb 13.5 12.3 L
Plt Count 163 D 200
Creatinine 1.9 H 1.3
eGFR 33.51 52.84
SARS-CoV-2 Antigen Negative
08/22/24 08/26/24 10/12/24
12:27 07:19 17:15
Potassium 3.3 L 3.9
BUN 42 H 41 H
Total Bilirubin 1.9 H
Yqy-P-Flpdggcdaxd Pept [id number]
CXR pending report
EKG
ATRIAL FIBRILLATION
RIGHT BUNDLE BRANCH BLOCK
ABNORMAL ECG
WHEN COMPARED WITH ECG OF 22-AUG-2024 10:33,
NO SIGNIFICANT CHANGE WAS FOUND
Confirmed by ASIM ROTH MD ([id number]) on 10/12/2024 5:11:19 PM
08/24/24 TTE
- LVEF 60-65%, by visual assessment.
- Grossly normal wall motion.
-Enlarged right ventricular size. Normal right ventricular systolic function.
-Severely dilated left atrium. Severely dilated right atrium.
-Moderate aortic stenosis; peak/mean gradients 40/20 mmHg, calculated TAY 1.2 cm2. Moderate aortic regurgitation.
-Mild to moderate tricuspid regurgitation.
- Estimated pulmonary artery pressure of 45-50 mmHg.
Compared to prior study of 05/11/2023, slightly progressive aortic regurgitation and tricuspid regurgitation are noted.
Last hospitalist admission: 08/22/24 - 08/26/24
Discharge Diagnosis/Procedures:
Acute on Chronic HFpEF
interstitial pulmonary edema
Recent Fall -c/b Left 11th Rib Fracture
COPD, mild acute exacerbation
ASSESSMENT & PLAN
Pending Rx reconciliation
Acute on chr Hypoxic RF due to acute HF plus mild COPD flare
Acute on chr HFpEF,
08/24/24 TTE : EF 60-65%, mod AR and , mild/mod TR, PASP 45-50
HX daily dosing of furosemide was associated with GARDENIA and syncope in the past.
HX diet noncompliance
- IV Lasix 40 daily while inpatient on color television console monitor
- GDMT limited by HX CKD3b
- daily Wt
- daily BMP
COPD: mild acute exacerbation
- c/w budesonide
- DuoNeb QID and PRN
- Add Mucinex
- IV Decadron 2 mg q12h
Permanent Atrial fibrillation
- [id number] score of 5
- cont diltiazem 120mg daily
- Apixaban 2.5 mg BID (age 89, creatinine >1.5)
Valvular HD: moderate and AR, mild/mod TR
Left 11th Rib Fracture s/p fall on last admission
- c/w Tylenol and Oxycodone prn
- Avoid Lidocaine patch given significant bruising
HX CAD
Dyslipidemia
- CABG 2005
- PCI mRCA (2004)
- Remains stable without chest pain.
- No ASA, since on apixaban
- on rosuvastatin
CKD3b with proteinuria
Anemia of chronic disease
Chronic Metabolic Acidosis
- on sodium bicarbonate
- follows with nephrology as an outpatient
Former smoker, 100 pack year, continued cessation recommended
SIMÓN, CPAP intolerant
DVT Px: on Apixaban
Code: Full
IP TLM
[2024-10-12] MEDS: LASIX 40 MG IV (18:19)
[2024-10-12 19:00] VITALS: BP 147/84
[2024-10-12 20:15] VITALS: BP 165/76; BMI 25.9
[2024-10-12] MEDS: PULMICORT 0.5 MG INH (21:07)
[2024-10-12 22:03] VITALS: BMI 25.9
[2024-10-12] MEDS: SODIUM BICARBONATE 650 MG PO (22:03)
[2024-10-12] MEDS: ZYLOPRIM 300 MG PO (22:03)
[2024-10-12] MEDS: ELIQUIS 2.5 MG PO (22:04)
[2024-10-12 23:00] VITALS: BP 129/73
[2024-10-13] VITALS (7 sets, daily range): BP systolic 110–145; BP diastolic 59–89; PULSE 74; O2SAT 97; BMI 26.6
[2024-10-13 05:50] LABS: Hematocrit 36.2 % (39.0-52.0); Hemoglobin 11.9 g/dL (13.0-18.0); Mean Corp Hgb Conc. 32.9 g/dL (33.0-37.0); Mean Corpuscular Hgb 29.4 pg (27.0-31.0); Mean Corpuscular Volume 89.4 fL (80.0-94.0); Mean Platelet Volume 10.2 fL (7.4-10.4); Platelet Count 172 10^3/uL (130-400); Red Blood Cell Count 4.05 10^6/uL (4.70-6.10); Red Cell Dist. Width 16.5 % (11.5-14.5); White Blood Cell Count 2.5 10^3/uL (4.8-10.8)
[2024-10-13 06:06] LABS: Blood Urea Nitrogen 44 mg/dl (9-20); Carbon Dioxide 27 mmol/L (22-30); Chloride 108 mmol/L (98-107); Estimated Creatinine Clearance 30 ml/min; Glucose 164 mg/dl (70-99); Potassium 4.2 mmol/L (3.5-5.1); Sodium 141 mmol/L (135-145)
[2024-10-13] MEDS: DECADRON 2 MG IV ×2 (06:17→17:09)
[2024-10-13 06:38] LABS: TSH Reflex To Free T4 0.45 uIU/ml (0.47-4.68)
--- NOTE | 2024-10-13 07:06 | PTCARENOTE ---
Patient arrived on unit @2029 via stretcher from ED. Patient AAOx3, ambulate to bed with assist x1. Patient denies any pain or discomfort, 97% on O2@3L. Skin assessment completed, oriented to unit, call escudero within reach.
[2024-10-13 07:08] LABS: Free T4 1.45 ng/dl (0.78-2.19)
[2024-10-13] MEDS: PULMICORT 0.5 MG INH ×2 (07:34→20:20)
[2024-10-13] MEDS: DUONEB 3 ML INH ×2 (07:34→20:20)
[2024-10-13] MEDS: LASIX 40 MG IV (08:17)
[2024-10-13] MEDS: SODIUM BICARBONATE 650 MG PO ×3 (08:17→21:07)
[2024-10-13] MEDS: CARDIZEM CD 120 MG PO (08:17)
[2024-10-13] MEDS: ELIQUIS 2.5 MG PO ×2 (08:17→21:06)
--- NOTE | 2024-10-13 08:34 | VNURNOTE ---
Chart reviewed. Patient is current with [facility] nursing, PT, OT. Will continue to follow hospital course and DC plans.
--- NOTE | 2024-10-13 10:23 | CM ---
Addendum entered by Ree Worrell 10/13/24 13:36:
PT/OT to eval, await rec
Original Note:
Patient seen at bedside
IA completed
Dx: Acute on chr HFpeF,copd
currently on 02-does not use at home
Patient lives in 1 story home with grand-daughter & grandson & daughter lives 4 houses away from them. [address]
PLOF: Independent with cane
DME; Cane, walker, wc, shower chair, commode
Denies insecurities
CURRENT with [facility] & has had rehab in past does not recall name
PCP: Miryam Pina
Pharmacy: [facility]
PLAN: anticipate home, DARCY with [facility] when stable, CM to follow progress
--- NOTE | 2024-10-13 14:02 | W.PN.HOSP.TC ---
Today's Communication/Plan
-
See plan
Assessment / Plan
Assessment / Plan
Impression:
Acute hypoxic respiratory failure secondary to CHF.
Acute CHF preserved EF exacerbation.
Acute pulmonary edema secondary to above
Other conditions:
Permanent atrial fibrillation.
Anticoagulation with apixaban
Valvular disease including moderate AAS and AR, mild to moderate TR
COPD.
Obstructive sleep apnea CPAP intolerant
Former smoker
CAD status post CABG 2005.
Dyslipidemia
CKD stage IIIb.
Anemia of chronic disease
Plan:
Echo 08/26:
-Left ventricular ejection fraction is 60-65%, by visual assessment. Grossly
normal wall motion.
-Enlarged right ventricular size. Normal right ventricular systolic function.
-Severely dilated left atrium. Severely dilated right atrium.
-Moderate aortic stenosis; peak/mean gradients 40/20 mmHg, calculated TAY 1.2
cm2. Moderate aortic regurgitation.
-Mild to moderate tricuspid regurgitation. Estimated pulmonary artery pressure
of 45-50 mmHg.
Acute preserved EF CHF exacerbation
Noted with hypoxia
Chest x-ray consistent with bilateral interstitial edema.
Weight is up at least 4 pounds since last admission.
BNP close to baseline.
Unclear reason for decompensation, although previously noted poor compliance with diuretics regimen at home as well as diet.
Continue O2 supplementation with attempt to wean.
Continue IV Lasix
Follow renal function
Not on TOMASA/ARB/Arni given CKD
CKD stage IIIb with baseline creatinine around 1.8.
Monitor creatinine with diuresis
Permanent atrial fibrillation
Continue rate control with Cardizem
CV score 5
Anticoagulation with apixaban
COPD with no evidence for exacerbation baseline exam with no bronchospasm.
Status post single dose of dexamethasone in ED.
Monitor closely for
Continue Pulmicort
Ambulatory dysfunction
Recent fall at home with forehead laceration.
Neurologic exam with no focal findings
Check CT scan of the head (patient is on anticoagulation)
Physical/Occupational Therapy assessment with discharge planning
Anticipated Discharge: 24 - 48 hours
Subjective/Interval History
-
Date of Service: October 13, 2024
Objective Data
-
Labs:
Laboratory Results
10/13/24
05:18
WBC 2.5 L
Hgb 11.9 L
Hct 36.2 L
Plt Count 172
Sodium 141
Potassium 4.2
Chloride 108 H
Carbon Dioxide 27
BUN 44 H
Creatinine 1.5 H
Glucose 164 H
Calcium 9.0
Vital Signs:
Vital Signs
Temp Pulse Resp BP Pulse Ox
97.3 F 90 16 111/61 93
10/13/24 11:00 10/13/24 11:00 10/13/24 11:00 10/13/24 11:00 10/13/24 13:01
I&O
10/12/24 10/13/24 10/14/24
06:59 06:59 06:59
Intake Total 240 / 240
Output Total 525 / 525
Balance -285 / -285
Physical Exam
-
General: Appears Chronically Ill
HEENT: PERRLA
Respiratory: Rales; Negative Wheezes
Cardiac: S1/S2 and Irregular Rhythm
GI: Soft and Nontender
Musculoskeletal: No Edema and Other (left ankle with decreased tenderness )
Skin: Warm and Dry; Negative Rash
Neuro: Awake and AO x 3
Psych: Calm; Negative Intact Judgement/Insight
[2024-10-13] MEDS: CRESTOR 40 MG PO (17:08)
[2024-10-13] MEDS: ZYLOPRIM 300 MG PO (21:07)
[2024-10-14] VITALS (7 sets, daily range): BP systolic 126–161; BP diastolic 69–84; PULSE 92; O2SAT 92; BMI 27.0
[2024-10-14] MEDS: DECADRON 2 MG IV (05:44)
[2024-10-14 06:18] LABS: Blood Urea Nitrogen 53 mg/dl (9-20); Calcium 8.8 mg/dl (8.4-10.2); Carbon Dioxide 25 mmol/L (22-30); Chloride 104 mmol/L (98-107); Estimated Creatinine Clearance 30 ml/min; Glucose 147 mg/dl (70-99); Potassium 4.4 mmol/L (3.5-5.1); Sodium 138 mmol/L (135-145)
[2024-10-14] MEDS: DUONEB 3 ML INH (07:37)
[2024-10-14] MEDS: PULMICORT 0.5 MG INH ×2 (07:37→17:55)
[2024-10-14] MEDS: SODIUM BICARBONATE 650 MG PO ×3 (08:40→21:15)
[2024-10-14] MEDS: ELIQUIS 2.5 MG PO ×2 (08:40→21:15)
[2024-10-14] MEDS: CARDIZEM CD 120 MG PO (08:40)
[2024-10-14] MEDS: LASIX 40 MG IV (08:40)
--- NOTE | 2024-10-14 11:36 | CM ---
CM following for discharge planning. PT tiffani recommends home health at discharge.
Plan: CM to speak with patient to determine agency of choice for home health care services.
--- NOTE | 2024-10-14 14:16 | W.PN.HOSP.TC ---
Today's Communication/Plan
-
Continue IV diuresis for another 24 hours with plan to transition to standing dose of oral furosemide 40 mg daily upon discharge.
Home oxygen assessment prior to discharge
Continue physical therapy evaluation
Assessment / Plan
Assessment / Plan
Impression:
Acute hypoxic respiratory failure secondary to CHF.
Acute CHF preserved EF exacerbation.
Acute pulmonary edema secondary to above
Other conditions:
Permanent atrial fibrillation.
Anticoagulation with apixaban
Valvular disease including moderate AAS and AR, mild to moderate TR
COPD.
Obstructive sleep apnea CPAP intolerant
Former smoker
CAD status post CABG 2005.
Dyslipidemia
CKD stage IIIb.
Anemia of chronic disease
Plan:
Echo 08/26:
-Left ventricular ejection fraction is 60-65%, by visual assessment. Grossly
normal wall motion.
-Enlarged right ventricular size. Normal right ventricular systolic function.
-Severely dilated left atrium. Severely dilated right atrium.
-Moderate aortic stenosis; peak/mean gradients 40/20 mmHg, calculated TAY 1.2
cm2. Moderate aortic regurgitation.
-Mild to moderate tricuspid regurgitation. Estimated pulmonary artery pressure
of 45-50 mmHg.
Acute preserved EF CHF exacerbation
Noted with hypoxia
Chest x-ray consistent with bilateral interstitial edema.
Weight is up at least 4 pounds since last admission.
BNP close to baseline.
Unclear reason for decompensation, although previously noted poor compliance with diuretics regimen at home as well as diet.
Continue O2 supplementation with attempt to wean.
Home O2 assessment prior to discharge
Continue IV Lasix for another 24 hours. Dry weight around 73 kg. Plan is to transition to standing dose of oral Lasix at 40 mg a day on 10/15.
Follow renal function
Not on TOMASA/ARB/Arni given CKD
CKD stage IIIb with baseline creatinine around 1.8-2.0
Chronic metabolic acidosis on bicarb maintenance
Monitor creatinine with diuresis
Permanent atrial fibrillation
Continue rate control with Cardizem
CV score 5
Anticoagulation with apixaban
COPD with no evidence for exacerbation baseline exam with no bronchospasm.
Wean off steroids.
Monitor closely for
Continue Pulmicort
Ambulatory dysfunction
Recent fall at home with forehead laceration.
CT head with no acute abnormal
Neurologic exam with no focal findings
Physical/Occupational Therapy assessment with discharge planning
Anticipated Discharge: 24 - 48 hours
Subjective/Interval History
-
Date of Service: October 14, 2024
Objective Data
-
Labs:
Laboratory Results
10/14/24
05:18
Sodium 138
Potassium 4.4
Chloride 104
Carbon Dioxide 25
BUN 53 H
Creatinine 1.5 H
Glucose 147 H
Calcium 8.8
Vital Signs:
Vital Signs
Temp Pulse Resp BP Pulse Ox
97.4 F 93 17 139/73 94
10/14/24 11:00 10/14/24 11:00 10/14/24 11:00 10/14/24 11:00 10/14/24 11:00
I&O
10/13/24 10/14/24 10/15/24
06:59 06:59 06:59
Intake Total 240 / 240 300 / 300
Output Total 525 / 525 700 / 700
Balance -285 / -285 -400 / -400
Physical Exam
-
General: Appears Chronically Ill
HEENT: PERRLA
Respiratory: Rales; Negative Wheezes
Cardiac: S1/S2 and Irregular Rhythm
GI: Soft and Nontender
Musculoskeletal: No Edema and Other (left ankle with decreased tenderness )
Skin: Warm and Dry; Negative Rash
Neuro: Awake and AO x 3
Psych: Calm; Negative Intact Judgement/Insight
[2024-10-14] MEDS: CRESTOR 40 MG PO (17:18)
--- NOTE | 2024-10-14 20:00 | FALL ---
Description of Fall: Staff member in room when patient was observed standing from chair to use urinal and falling to knees. Patient did not hit head. Patient states he 'lost his footing'. Patient denies any lightheadedness or dizziness. Vitals WNL.
LINDA Kern notified and in to assess patient. Nursing Automobile Tester made aware. No new orders.
Injuries Noted: N/A
Action Taken: Bed alarm placed on bed.
Name of Provider Notified: Arabella MCKEON
[2024-10-14] MEDS: ZYLOPRIM 300 MG PO (21:16)
[2024-10-15] VITALS (7 sets, daily range): BP systolic 120–160; BP diastolic 64–82; PULSE 98; O2SAT 96; BMI 27.5
[2024-10-15 06:02] LABS: Blood Urea Nitrogen 53 mg/dl (9-20); Calcium 8.8 mg/dl (8.4-10.2); Carbon Dioxide 26 mmol/L (22-30); Chloride 103 mmol/L (98-107); Estimated Creatinine Clearance 30 ml/min; Glucose 110 mg/dl (70-99); Potassium 4.3 mmol/L (3.5-5.1); Sodium 138 mmol/L (135-145)
[2024-10-15] MEDS: PULMICORT 0.5 MG INH ×2 (07:18→19:17)
[2024-10-15] MEDS: SODIUM BICARBONATE 650 MG PO ×3 (08:09→20:23)
[2024-10-15] MEDS: ELIQUIS 2.5 MG PO ×2 (08:09→20:12)
[2024-10-15] MEDS: CARDIZEM CD 120 MG PO (08:09)
[2024-10-15] MEDS: LASIX 40 MG IV (08:09)
--- NOTE | 2024-10-15 08:52 | CON.CAR ---
Addendum entered and electronically signed by Natanael Fry MD 10/15/24 16:25:
I saw and examined the patient.
The SALES PROJECT ADMINISTRATOR's note was reviewed and I agree with the note.
Comment:
89-year-old man with CAD, persistent atrial fibrillation, and HFpEF who presents with shortness of breath. History obtained from him and his daughter. His daughter notes that last week he gained about 4 pounds in 4 days. He does not take Lasix on
a regular basis but started taking 20 mg daily from Thursday through last Thursday. Weight returned to his baseline (160 pounds). Despite that, throughout the week he continued to feel short of breath and have a wet sounding cough. She brought him
to the ER because she was worried he might have pneumonia. He feels improved compared to admission. He has been up and walking the halls without oxygen. He received IV Lasix and underwent chest CT which showed severe bronchiolitis and probably
aspiration.
Physical exam with irregular rate/rhythm, no murmurs, rhonchorous lung sounds, and trace lower extremity edema.
Labs notable for creatinine 1.5 (baseline 1.7�2.0), proBNP 4170 (previously 5920)
I suspect that most of his cough and dyspnea can be attributed to his CT findings of severe bronchiolitis and aspiration. Based on his standing weight on 10/13/2024 he is at his dry weight (160 pounds) which his daughter corroborates. His BNP is
lower than prior and he examines euvolemic. No further IV diuresis. His daughter is very competent and manages his as needed Lasix at home. I would continue this strategy given that when he was put on standing Lasix in the past, he represented
with severe dehydration. Asked case management to flynn SGLT2 inhibitor. Continue Eliquis and diltiazem for atrial fibrillation.
Original Note:
Consultation
Consultation Request
Date/Time Consultation Requested: 10/15/2024 0800
Date/Time Consultation Performed: 10/15/2024 0830
Requesting Provider: Dr. Washburn
Performing Provider: Dr. Fry
Reason for Consultation: SOB, HFpEF
Medical History
-
Chief Complaint: SOb
History of Present Illness:
Outpatient filter tender jelly: Dr. Celestin
-
89M with CAD s/p CABG 2005 (JJ-LAD, VG-D1, VG-PDA), mid RCA stent 2004, paroxysmal atrial flutter, persistent atrial fibrillation (on apixaban), HTN, dyslipidemia, mild/mod , mild AR, mild/mod TR, chronic HFpEF, CKD3b, SIMÓN (cannot tolerate
CPAP), and COPD, who presented with a chief complaint of shortness of breath. He thinks symptoms started several days ago. Increased SOB. he thinks his home wwights have been around 160-165 lbs. He is unsure of how much fluid he is drinking. He
states his family usually will try to limit it. He states he had been taking his lasix and an increased OP dose did not help his SOB.
Past Medical History
Past Medical History: Other ( CAD, COPD, HTN, hyperlipidemia, sleep apnea, HFpEF,permanent AF, CKD3b, mod , mild/mod TR)
Social History
Tobacco: Former Smoker
Alcohol: Occasional
Drug: None
Living: With Family
Family History
Family History: Reviewed & Not Pertinent
Allergies / Home Medications
Allergy/AdvReac Type Severity Reaction Status Date / Time
No Known Allergies Allergy Verified 10/12/24 16:47
�Medication �Instructions �Recorded �Confirmed �Type
cyanocobalamin (vitamin B-12) 1,000 mcg PO DAILY Supplement 07/04/11 10/12/24 History
1,000 mcg tablet
budesonide 0.5 mg/2 mL suspension 0.5 mg inhalation R BID 02/28/20 10/12/24 History
for nebulization Lung/breathing issues
rosuvastatin 40 mg tablet (Crestor) 40 mg PO QPM High cholesterol 02/28/20 10/12/24 History
allopurinol 300 mg tablet 300 mg PO HS Gout 05/08/23 10/12/24 History
ipratropium 0.5 mg-albuterol 3 mg 3 ml inhalation R TID 05/08/23 10/12/24 History
(2.5 mg base)/3 mL nebulization Lung/Breathing Issues
soln
apixaban 2.5 mg tablet (Eliquis) 2.5 mg PO BID afib #0 tabs 05/11/23 10/12/24 Rx
omega 5-xou-qdb-fish oil 1,200 mg 1,200 cap PO DAILY Supplement #0 05/11/23 10/12/24 Rx
(144 mg-216 mg) capsule (Fish Oil) caps
acetaminophen 500 mg tablet 1,000 mg PO BIDPRN PRN mild pain 05/25/23 10/12/24 History
(Tylenol Extra Strength)
sodium bicarbonate 650 mg tablet 650 mg PO TID Supplement 08/22/24 10/12/24 History
diltiazem HCl 120 mg 120 mg PO DAILY #30 caps 08/26/24 10/12/24 Rx
capsule,extended release 24 hr
furosemide 20 mg tablet 20 mg PO DAILYPRN PRN Weight gain 10/12/24 10/12/24 History
Review of Systems
-
History Source: Patient
Constitutional: No Symptoms
EENT: No Symptoms
Respiratory: Trouble Breathing
Cardiac: No Symptoms
Abdomen/GI: No Symptoms
: No Symptoms
Musculoskeletal: Edema (Usually L ankle greater than R ankle )
Neurological: No Symptoms
Physical Exam
Vital Signs
Temp Pulse Resp BP Pulse Ox
97.5 F 94 20 154/76 95
10/15/24 07:25 10/15/24 07:25 10/15/24 07:25 10/15/24 07:25 10/15/24 07:20
Lab Results
10/13/24 05:18
10/15/24 05:18
Iwu-W-Hayzcvayxbt Pept 4170 pg/ml 10/12/24 17:15
Physical Exam
General: Well Developed and Well Nourished
Respiratory: Wheezes (exp wheezes )
Cardiac: S1/S2, Irregular Rhythm and Peripheral Edema (mild ankle bilat)
GI: Soft and Non Tender
Musculoskeletal: Edema (mild ankle bilat)
Skin: Warm and Dry
Psych: Calm
Impression / Plan
-
HFpEF, acute on chronic:
-BNP 4170 10/12/24, prior 08/22/24 5920, weight on admit 75.7, d/c weight 08/26/24 73.1 kg. weight is up today. Con't IV lasix .
-last admit in 08/2024.
-echo 08/24: EF 60-65%, mod AR and , mild/mod TR,
-GDMT limited by renal function. Creat 1.6-2.0 prior admit 08/2024, 10/12 1.3 now at 1.5
-non compliance noted in the past.
-in past daily home lasix dosing was associated with AGRDENIA and syncope. Had been d/c last admit on prn lasix.
Atrial fibrillation, permanent
- cont diltiazem 120mg daily
- [id number] score of 5
- Oral anticoagulation: Apixaban 2.5 mg twice daily (age 89, creatinine >1.5), denies missed doses and abnormal bleeding
COPD, chronic - per primary service
CAD
- CABG 2005 (JJ-LAD, VG-D1, VG-PDA), PCI mRCA (2004)
- Remains stable without chest pain.
- No ASA, since on apixaban
CKD3b, with proteinuria, follow with diuresis, follows with nephrology as an outpatient
Valvular HD: moderate and AR, mild/mod TR
Anemia of chronic disease
Former smoker, 100 pack year, continued cessation recommended
Dyslipidemia, stable on rosuvastatin, continue
SIMÓN, CPAP intolerant
Subjective:
Pt. thinks SOB slightly better since admit. Denies CP, palps,
Data Reviewed
-
EKG: Tracing Personally Visualized and interpreted ( EKG 10/12/24 AF RBBB 90 bpm ) and Other (Tele: AF 90-120's )
Medical Tests (Nuc Med, Echo etc): Report Reviewed by me (Echo 08/24/24: Left ventricular ejection fraction is 60-65%, by visual assessment. Grossly normal wall motion. -Enlarged right ventricular size. Normal right ventricular systolic function.
-Severely dilated left atrium. Severely dilated right atrium. -Moderate aortic stenosis; peak/mean gradient)
Labs: Labs Reviewed by me
--- NOTE | 2024-10-15 09:21 | W.PN.HOSP.TC ---
Today's Communication/Plan
-
CT chest to better look at lung, concern for Pneumonia/ COPD flare up
Resume usual inhalation therapy. DuoNeb BID, Budesonide BID.
Might need Lasix BID. Follow with cardiology recommendations.
Assessment / Plan
Assessment / Plan
Physical Exam
General: chronically ill looking
HEENT: Moist Mucous Membranes, Anicteric and PERRLA
Respiratory: positive bilateral Rales
Cardiac: Regular Rhythm and S1/S2;
GI: Soft, Nontender, Nondistended and Normal Bowel Sounds
Musculoskeletal: No joint swelling. No edema.
Skin: Warm, Dry and no rash
Neuro: Awake and AO x 3, non-focal exam.
Psych: Calm
Impression:
Acute hypoxic respiratory failure secondary to CHF.
Acute CHF preserved EF exacerbation.
Acute pulmonary edema secondary to above
Other conditions:
Permanent atrial fibrillation.
Anticoagulation with apixaban
Valvular disease including moderate AAS and AR, mild to moderate TR
COPD.
Obstructive sleep apnea CPAP intolerant
Former smoker
CAD status post CABG 2005.
Dyslipidemia
CKD stage IIIb.
Anemia of chronic disease
Plan:
Acute preserved EF CHF exacerbation
Noted with hypoxia
Chest x-ray consistent with bilateral interstitial edema.
Weight is up at least 4 pounds since last admission.
Continue O2 supplementation with attempt to wean.
Home O2 assessment prior to discharge
Continue IV Lasix for another 24 hours. Dry weight around 73 kg.
Follow renal function
Not on TOMASA/ARB/Arni given CKD
# Persistent cough/ rales
Lung exam is not normal with rales and rhonchi
lack of improvement despite IV Lasix for 3 days should rule out other causes. ,
Will do CT chest to rule out infiltrates/ pneumonia, or could be persistent COPD exacerbation. Pt was given 3 doses of IV Dexamethasone then stopped. He is not on his usual inhalation therapy. DuoNeb BID, Budesonide BID.
CKD stage IIIb with baseline creatinine around 1.8-2.0
Chronic metabolic acidosis on bicarb maintenance
Monitor creatinine with diuresis
Permanent atrial fibrillation
Continue rate control with Cardizem
Anticoagulation with apixaban
Ambulatory dysfunction
Recent fall at home with forehead laceration.
CT head with no acute abnormal
Neurologic exam with no focal findings
Physical/Occupational Therapy assessment with discharge planning
Total time spent to see the patient, examine the patient, review data and lab result, discuss treatment plan with patient, nursing staff around 55 minutes
Anticipated Discharge: > 48 hours
Subjective/Interval History
-
Date of Service: October 15, 2024
He denies worsening breathing or cough
No chest pain
Still cough and requiring O2
Objective Data
-
Labs:
Laboratory Results
10/15/24
05:18
Sodium 138
Potassium 4.3
Chloride 103
Carbon Dioxide 26
BUN 53 H
Creatinine 1.5 H
Glucose 110 H
Calcium 8.8
Vital Signs:
Vital Signs
Temp Pulse Resp BP Pulse Ox
97.5 F 94 20 154/76 95
10/15/24 07:25 10/15/24 07:25 10/15/24 07:25 10/15/24 07:25 10/15/24 07:20
I&O
10/14/24 10/15/24 10/16/24
06:59 06:59 06:59
Intake Total 300 / 300 420 / 420
Output Total 700 / 700 1445 / 1445
Balance -400 / -400 -1025 / -1025
[2024-10-15] MEDS: CRESTOR 40 MG PO (17:05)
[2024-10-15] MEDS: DUONEB 3 ML INH (19:17)
[2024-10-15] MEDS: ZYLOPRIM 300 MG PO (20:12)
[2024-10-16 03:00] VITALS: BP 148/74
[2024-10-16 05:35] VITALS: BMI 26.7
[2024-10-16 07:30] VITALS: BP 151/81
[2024-10-16] MEDS: DUONEB 3 ML INH ×2 (07:30→19:59)
[2024-10-16] MEDS: PULMICORT 0.5 MG INH ×2 (07:30→19:59)
[2024-10-16] MEDS: SODIUM BICARBONATE 650 MG PO ×3 (08:09→20:46)
[2024-10-16] MEDS: CARDIZEM CD 120 MG PO (08:09)
[2024-10-16] MEDS: ELIQUIS 2.5 MG PO ×2 (08:09→20:46)
--- NOTE | 2024-10-16 08:50 | W.PN.HOSP.TC ---
Today's Communication/Plan
-
IV steroid
consult pulmonary
Lasix
CBC & CMP in AM
Assessment / Plan
Assessment / Plan
Physical Exam
General: chronically ill looking,
HEENT: Moist Mucous Membranes, Anicteric and PERRLA
Respiratory: positive bilateral Rales
Cardiac: Regular Rhythm and S1/S2;
GI: Soft, Nontender, Nondistended and Normal Bowel Sounds
Musculoskeletal: No joint swelling. No edema.
Skin: Warm, Dry and no rash
Neuro: Awake and AO x 3, non-focal exam.
Psych: Calm
Impression:
Acute hypoxic respiratory failure secondary to CHF.
Acute CHF preserved EF exacerbation.
Acute pulmonary edema secondary to above
Other conditions:
Permanent atrial fibrillation.
Anticoagulation with apixaban
Valvular disease including moderate AAS and AR, mild to moderate TR
COPD.
Obstructive sleep apnea CPAP intolerant
Former smoker
CAD status post CABG 2005.
Dyslipidemia
CKD stage IIIb.
Anemia of chronic disease
Plan:
Acute preserved EF CHF exacerbation
Noted with hypoxia
Chest x-ray consistent with bilateral interstitial edema.
Weight is up at least 4 pounds since last admission.
Continue O2 supplementation with attempt to wean.
Home O2 assessment prior to discharge
Continue IV Lasix for another 24 hours. Dry weight around 73 kg.
Follow renal function
Not on TOMASA/ARB/Arni given CKD
# Acute respiratory distress
He remains to have persistent cough/ rales despite diuretic therapy . Acute hypoxic respiratory failure with respiratory distress, requiring oxygen, using accessory respiratory muscles.
Lung exam with rales and rhonchi
CT chest showed moderate to severe bilateral bronchiolitis with emphysema. t COPD exacerbation. Pt was given 3 doses of IV Dexamethasone then stopped,will place back on IV Solu-Medrol. Resumed DuoNeb BID, Budesonide BID.
Consult pulmonary.
CKD stage IIIb with baseline creatinine around 1.8-2.0
Chronic metabolic acidosis on bicarb maintenance
Monitor creatinine with diuresis
Permanent atrial fibrillation
Continue rate control with Cardizem
Anticoagulation with apixaban
CBC in AM
Ambulatory dysfunction
Recent fall at home with forehead laceration.
CT head with no acute abnormal
Neurologic exam with no focal findings
Physical/Occupational Therapy assessment with discharge planning
Total time spent to see the patient, examine the patient, review data and lab result, discuss treatment plan with patient, nursing staff around 55 minutes
Anticipated Discharge: > 48 hours
Subjective/Interval History
-
Date of Service: October 16, 2024
No chest pain
Seems to have same sob and still on oxygen
Objective Data
-
Vital Signs:
Vital Signs
Temp Pulse Resp BP Pulse Ox
97.4 F 88 18 151/81 92
10/16/24 07:30 10/16/24 08:09 10/16/24 07:37 10/16/24 08:09 10/16/24 07:37
I&O
10/15/24 10/16/24 10/17/24
06:59 06:59 06:59
Intake Total 420 / 420 1260 / 1260
Output Total 1445 / 1445 1400 / 1400
Balance -1025 / -1025 -140 / -140
[2024-10-16] MEDS: SOLU-MEDROL PF 60 MG IV (10:50)
[2024-10-16 11:45] VITALS: BP 126/63
--- NOTE | 2024-10-16 13:14 | CM ---
Called [facility] [phone] pharmacy which is closed .
Will need to follow up on Thursday for Farxiga and Jardiance prices. s aware via TT.
[2024-10-16 16:00] VITALS: BP 101/69
--- NOTE | 2024-10-16 16:56 | CON.PUL ---
Consultation
Consultation Request
Date/Time Consultation Requested: 10/16/2024 - 1340
Date/Time Consultation Performed: 10/16/2024 - 154
Requesting Provider: Dr. Washburn
Performing Provider: Dr. Luque
Reason for Consultation: SOB/Hypoxia
Medical History
-
Chief Complaint: SOB, cough, wheezing and ankle swelling
History of Present Illness:
89-year-old male with a past medical history of restrictive lung disease, centrilobular emphysema, history of COPD, gout, history of sleep apnea intolerant to CPAP, aortic stenosis, CHF, A-fib on Eliquis and CAD s/p CABG who presents with SOB,
cough, wheezing and ankle swelling. He reportedly had gained 4 pounds over the last 4 days prior to arrival. In the ER he was afebrile, pulse rate 88, BP 125/75 and was saturating 88% on room air which improved to 94% on 2 L/min nasal cannula.
Initial labs pertinent for Hb 12.3, proBNP 41 7, and COVID-19 antigen negative. Flu swab collected and was negative. CXR showed suspected CHF with component of chronic interstitial lung disease. He was initially diuresed and given DuoNebs and
Solu-Medrol and admitted to the floor. Despite diuresis he had continued to feel short of breath with a wet sounding cough. CT chest obtained on 10/15/2024 showing significant bronchial wall thickening with severe bilateral lower lobe
bronchitis/bronchiolitis with bilateral lower lobe centrilobular patchy nodular opacities concerning for pneumonia/aspiration. He also has moderate bilateral upper lobe centrilobular emphysema with subpleural interstitial reticular opacities.
Pulmonary service now consulted for additional management/recommendations.
When I saw the pt he was in chair in NAD receiving a neb treatment. Prior to this he was on 2L/min. He says that he is feeling good, and has a mild dry cough and feels only a little SOB. He does have a wet-sounding cough, however. He otherwise
denies chest pain, IGLESIAS, abd pain, N/V/f/c.
Patient follows with us in the [facility] office with last visit on 09/02/2024 with LINDA Resendiz. Patient is very sedentary and just wanted to focus on being comfortable. He has rib fractures and that may be worsening his shortness of breath. He
is prescribed DuoNebs. He was told to follow-up with us in 6 months with possible spirometry and 6 MWT. Last PFT was in July 2021 which showed no obstructive lung defect the time, no restriction and there was a moderate gas exchange capacity
defect which was mild when accounting for alveolar volume involved in gas exchange (DLCO: 48%, DLCO/VA: 62%).
PMHx: Restrictive lung disease, centrilobular emphysema, gout, Hx of sleep apnea intolerant to CPAP, aortic stenosis, PVD, CAD s/p mRCA stent + CABG (2005), HLD, HTN, CHF, A-fib on Eliquis
PSHx: CABG. bilateral cataracts, right thumb repair, bilateral arthroscopy of knee, CTS wrist, cardioversion (05/2022)
Past Medical History
Past Medical History: Other (Above as per HPI)
Past Surgical History: Other (Above as per HPI)
Social History
Tobacco: Former Smoker ([id number] history, quit 1999)
Alcohol: Occasional
Drug: None
Personal:
Living: With Family
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
Family History
Family History: CAD (Father (history of NH)) and Cancer (Sister: Breast cancer; daughter: Endometrial cancer)
Allergies / Home Medications
Allergies
Allergy/AdvReac Type Severity Reaction Status Date / Time
No Known Allergies Allergy Verified 10/12/24 16:47
Home Medications
�Medication �Instructions �Recorded �Confirmed �Last Taken �Type
cyanocobalamin (vitamin B-12) 1,000 mcg PO DAILY Supplement 07/04/11 10/12/24 10/12/24 History
1,000 mcg tablet
budesonide 0.5 mg/2 mL suspension 0.5 mg inhalation R BID 02/28/20 10/12/24 10/12/24 History
for nebulization Lung/breathing issues
rosuvastatin 40 mg tablet (Crestor) 40 mg PO QPM High cholesterol 02/28/20 10/12/24 08/21/24 History
allopurinol 300 mg tablet 300 mg PO HS Gout 05/08/23 10/12/24 08/21/24 History
ipratropium 0.5 mg-albuterol 3 mg 3 ml inhalation R TID 05/08/23 10/12/24 10/12/24 History
(2.5 mg base)/3 mL nebulization Lung/Breathing Issues
soln
apixaban 2.5 mg tablet (Eliquis) 2.5 mg PO BID afib #0 tabs 05/11/23 10/12/24 10/12/24 Rx
omega [id number]-ggp-atb-fish oil 1,200 mg 1,200 cap PO DAILY Supplement #0 05/11/23 10/12/24 10/12/24 Rx
(144 mg-216 mg) capsule (Fish Oil) caps
acetaminophen 500 mg tablet 1,000 mg PO BIDPRN PRN mild pain 05/25/23 10/12/24 10/12/24 History
(Tylenol Extra Strength)
sodium bicarbonate 650 mg tablet 650 mg PO TID Supplement 08/22/24 10/12/24 10/12/24 History
diltiazem HCl 120 mg 120 mg PO DAILY #30 caps 08/26/24 10/12/24 10/12/24 Rx
capsule,extended release 24 hr
furosemide 20 mg tablet 20 mg PO DAILYPRN PRN Weight gain 10/12/24 10/12/24 10/09/24 History
Review of Systems
-
History Source: Patient
All other systems: Negative unless noted
Vitals / Labs / Diagnostic Testing
Vital Signs
Temp Pulse Resp BP Pulse Ox
97.8 F 83 20 126/63 97
10/16/24 11:45 10/16/24 11:45 10/16/24 11:45 10/16/24 11:45 10/16/24 11:45
Lab Data
10/13/24 05:18
10/15/24 05:18
Microbiology
10/16/24 08:24 Sputum Gram Stain - Preliminary
Diagnostic Testing:
Physical Exam
-
HEENT: Normocephalic and Anicteric
Cardiovascular: Irregular Rhythm, Murmur (XAVIER heard across top of precordium) and Peripheral Edema (negative)
Respiratory: Wheeze (negative), Rales (negative), Rhonchi (bilaterally) and Non-Labored Respirations
GI: Soft, Non Distended, Non Tender and Normal Bowel Sounds
Neurology: Awake, Alert and Tremors (negative)
Skin: Warm and Dry
General: Respiratory Distress (negative), Comfortable, Fever (negative) and Chills (negative)
Assessment
-
Assessment: 89-year-old male with a past medical history of restrictive lung disease, centrilobular emphysema, history of COPD, gout, history of sleep apnea intolerant to CPAP, aortic stenosis, CHF, A-fib on Eliquis and CAD s/p CABG who presents
with SOB, cough, wheezing and ankle swelling. He reportedly had gained 4 pounds over the last 4 days prior to arrival. In the ER he was afebrile, pulse rate 88, BP 125/75 and was saturating 88% on room air which improved to 94% on 2 L/min nasal
cannula. Initial labs pertinent for Hb 12.3, proBNP 41 7, and COVID-19 antigen negative. Flu swab collected and was negative. CXR showed suspected CHF with component of chronic interstitial lung disease. He was initially diuresed and given
DuoNebs and Solu-Medrol and admitted to the floor. Despite diuresis he had continued to feel short of breath with a wet sounding cough. CT chest obtained on 10/15/2024 showing significant bronchial wall thickening with severe bilateral lower lobe
bronchitis/bronchiolitis with bilateral lower lobe centrilobular patchy nodular opacities concerning for pneumonia/aspiration. He also has moderate bilateral upper lobe centrilobular emphysema with subpleural interstitial reticular opacities.
Pulmonary service now consulted for additional management/recommendations.
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
Impression:
#Shortness of breath due to multifocal pneumonia with bronchitis/bronchiolitis in the setting of combined pulmonary fibrosis and emphysema with acute exacerbation
#Acute respiratory failure with hypoxia due to above
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
#Leukopenia
#Anemia
#CKD
#Elevated T. bili
#Persistent A-fib on Eliquis
#Chronic HFpEF
#Elevated proBNP
#Former tobacco smoker
#Valvular heart disease with moderate , moderate AI, mild-moderate TR, and mild MR (per TTE from 08/24/2024)
#Chronic pulmonary hypertension (suspected moderate severity with PASP 40-50mmHg on recent TTE from 08/24/2024, and it has been in this range as far back as 2018)
Plan:
- CT chest from 10/15/2024 was personally reviewed showing significant bronchial wall thickening in all lobes but most prominent in the lower lobes (L>R), with upper lobe predominant centrilobular emphysema, and many nodular/patchy opacities with
tree-in-bud in the bilateral lower lobes, posteriorly, predominantly in the left lung. He does have bilateral subpleural reticular opacities and this is consistent with combined pulmonary fibrosis and emphysema
- Recommend to start antibiotics w/ Unasyn & Zithromax (QTc: 479ms on EKG from 10/12/2024) and follow-up respiratory culture drawn earlier today (10/16); check set of BCx prior to starting ABx
- Interestingly, his prior PFT from 07/17/2021 did not show any evidence of restriction and no evidence of obstruction. Also no evidence of obstructive lung disease from prior PFTs from 2011, although spirometry from 09/30/2017 did show a moderate
persistent obstructive lung defect
- Given his Hx of CPFE, continue with systemic steroids with Solu-Medrol 60 mg IV daily in addition to DuoNebs and budesonide
- Aspiration precautions
- PT/OT
- Consult [employer]W MEMBER evaluation to assess for aspiration
- I do not see any evidence of volume overload on his current CT chest performed 10/15/2024, hence would not diurese (s/p 40mg IV lasix 10/12 - 10/15)
- Cardiologyon board and recs appreciated
- Defer GDMT to them
- HR control with goal <110bpm
- Replete electrolytes with K>4, Mg>2
- Maintain SpO2 >88% with supplemental O2 and wean down as tolerated
- Check home O2 assessment prior to discharge
- prn nebulized bronchodilators - not currently bronchospastic
- He has a wet-sounding cough - -> start mucinex and acapella
- Start prn nebulized 3%; make 3% scheduled in conjunction with vest therapy for CPT if he continues to have difficulty expectorating
- Given his current exacerbation with former tobacco Hx and CPFE with Hx of COPD, would consider starting Ohtuvayre - this can be discussed as an outpatient
- Incentive spirometer encouraged q1hr while awake
- Trend H/H and transfuse if needed to keep Hb>7g/dL; keep plt>20k, unless there is concern for bleeding then keep plt>50k
- Maintain euglycemia genia while on systemic steroids; goal BG >100 and <180
- DVT ppx: Eliquis
Code status: Full code - -> this should be discussed and considered to be changed to DNR/DNI given his age and co-morbidities.
Pulmonary service will continue to follow along. Will assure he has follow up with our office after discharge for continued close follow up - next appt scheduled for 03/03/2025, which will be moved up.
Data:
CT chest without contrast 10/15/2024:
SEVERE BILATERAL LOWER LOBE BRONCHITIS in a large number of new small centrilobular pulmonary nodules in the posterior and lateral basilar segments of the left lower lobe consistent with SEVERE BRONCHIOLITIS and probably AIRWAY ASPIRATION. Mild
bronchiolitis in the right lower lobe.
2. Moderate bilateral upper lobe centrilobular emphysema.
3. Severe calcific atherosclerotic plaque in the aorta and [place] coronary arteries.
4. Previous CABG surgery.
5. Mild cardiomegaly.
6. Mild mediastinal lymphadenopathy.
7. Small midline anterior abdominal wall hernia containing transverse colon.
8. Cholelithiasis.
9. 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
10. Chronic vertebral body endplate fractures of T12..
Total time spent today was 57 minutes for this encounter. Time includes reviewing laboratory test/imaging results, reviewing pertinent medical records, obtaining and reviewing medical history, performing an appropriate exam, ordering medications,
tests and procedures. Time also includes documentation of this encounter, coordinating patient care and communicating with other healthcare professionals. Total time does not include separately billed tests performed on this date of service.
[2024-10-16] MEDS: CRESTOR 40 MG PO (17:07)
[2024-10-16 19:00] VITALS: BP 137/62
[2024-10-16] MEDS: ZITHROMAX INFUSION 250 IV (20:45)
[2024-10-16] MEDS: ZYLOPRIM 300 MG PO (20:46)
[2024-10-16] MEDS: UNASYN IV (22:27)
[2024-10-16 23:00] VITALS: BP 140/72
[2024-10-17] VITALS (9 sets, daily range): BP systolic 104–147; BP diastolic 58–76; PULSE 80–87; O2SAT 90–98; BMI 27.0
[2024-10-17] MEDS: UNASYN IV ×4 (03:34→22:19)
[2024-10-17 05:41] LABS: Hematocrit 40.7 % (39.0-52.0); Mean Corp Hgb Conc. 31.9 g/dL (33.0-37.0); Mean Corpuscular Hgb 28.5 pg (27.0-31.0); Mean Corpuscular Volume 89.3 fL (80.0-94.0); Mean Platelet Volume 10.2 fL (7.4-10.4); Platelet Count 203 10^3/uL (130-400); Red Blood Cell Count 4.56 10^6/uL (4.70-6.10); Red Cell Dist. Width 15.9 % (11.5-14.5); White Blood Cell Count 5.6 10^3/uL (4.8-10.8)
[2024-10-17 06:02] LABS: ALT (SGPT) 38 U/L (0-50); AST (SGOT) 25 U/L (17-59); Albumin 3.9 g/dl (3.5-5.0); Alkaline Phosphatase 89 U/L (38-126); Blood Urea Nitrogen 52 mg/dl (9-20); Calcium 8.9 mg/dl (8.4-10.2); Carbon Dioxide 25 mmol/L (22-30); Chloride 102 mmol/L (98-107); Estimated Creatinine Clearance 32 ml/min; Glucose 163 mg/dl (70-99); Potassium 4.7 mmol/L (3.5-5.1); Sodium 136 mmol/L (135-145); Total Bilirubin 1.4 mg/dl (0.2-1.3); Total Protein 6.7 g/dl (6.3-8.2); eGFR 48.34
[2024-10-17] MEDS: DUONEB 3 ML INH ×2 (07:42→19:40)
[2024-10-17] MEDS: PULMICORT 0.5 MG INH ×2 (07:42→19:32)
--- NOTE | 2024-10-17 07:50 | W.PN.CD ---
Today's Communication / Plan
-
Lasix PRN
He appears euvolemic and weight is stable
Impression / Plan
-
HFpEF, acute on chronic:
-BNP 4170 10/12/24, prior 08/22/24 5920, weight on admit 75.7, d/c weight 08/26/24 73.1 kg. weight is up today. Con't IV lasix .
-last admit in 08/2024.
-echo 08/24: EF 60-65%, mod AR and , mild/mod TR,
-GDMT limited by renal function. Creat 1.6-2.0 prior admit 08/2024, 10/12 1.3 now at 1.5
-daughter helps with lasix dosing appears relatively euvolemic
Atrial fibrillation, permanent
- cont diltiazem 120mg daily
- [id number] score of 5
- Oral anticoagulation: Apixaban 2.5 mg twice daily (age 89, creatinine >1.5), denies missed doses and abnormal bleeding
COPD, chronic - per primary service
CAD
- CABG 2005 (JJ-LAD, VG-D1, VG-PDA), PCI mRCA (2004)
- Remains stable without chest pain.
- No ASA, since on apixaban
CKD3b, with proteinuria, follow with diuresis, follows with nephrology as an outpatient
Valvular HD: moderate and AR, mild/mod TR
Anemia of chronic disease
Former smoker, 100 pack year, continued cessation recommended
Dyslipidemia, stable on rosuvastatin, continue
SIMÓN, CPAP intolerant
Subjective:
Paitent feeling improved ,
Physical Exam
Vital Signs/Labs
Vital Signs
Temp Pulse Resp BP Pulse Ox
97.5 F 82 18 104/58 93
10/17/24 07:40 10/17/24 07:44 10/17/24 07:44 10/17/24 07:40 10/17/24 07:44
10/16/24 10/17/24 10/18/24
06:59 06:59 06:59
Actual Weight 160 lb 9 oz 162 lb 2 oz
10/17/24 05:14
10/17/24 05:14
Free T4 1.45 ng/dl (0.78-2.19) 10/13/24 05:18
10/12/24
17:15
Cxm-B-Tqmquiccpfe Pept 4170
Physical Exam
Constitutional: No acute distress and Comfortable
EENT: Anicteric
Cardiovascular: Rhythm/rate is irregular
Respiratory: Respiratory effort normal, Wheeze Present and Crackles Present
GI: Soft
Neuro/Psych: Alert and Oriented
Data Reviewed
-
Date of Service: October 17, 2024
EKG: Tracing Personally Visualized and interpreted (af)
Echo: Report Reviewed by me
Labs: Labs Reviewed by me
[2024-10-17] MEDS: MUCINEX 1200 MG PO ×2 (07:57→19:59)
[2024-10-17] MEDS: ELIQUIS 2.5 MG PO ×2 (07:57→19:59)
[2024-10-17] MEDS: SODIUM BICARBONATE 650 MG PO ×3 (07:57→22:19)
[2024-10-17] MEDS: CARDIZEM CD 120 MG PO (07:57)
[2024-10-17] MEDS: ZITHROMAX 250 MG PO (07:57)
[2024-10-17] MEDS: SOLU-MEDROL PF 60 MG IV (07:57)
[2024-10-17] MEDS: FLUSH (NSS) 2 FLUSH IV (07:59)
--- NOTE | 2024-10-17 10:10 | PTOTSP ---
Dysphagia Evaluation
Oral/pharyngeal swallowing suspected to be WFL based on bedside swallow evaluation. Patient is at risk for dysphagia/aspiration given acute and chronic factors (i.e., Acute on chronic HFpEF, mild COPD exacerbation; restrictive lung disease,
emphysema, COPD, CHF). CT Chest concerning for PNA/aspiration. If concerned for silent aspiration consider instrumental swallowing assessment via video swallow study.
Recommend:
1. IDDSI 7 Regular, Thin
2. Medications as best tolerated
3. Strategies: slow rate with breaks for breathing given COPD
4. Oral care 3x daily
5. Video swallow study if concerned for silent aspiration. Otherwise no further tx warranted at this time.
--- NOTE | 2024-10-17 11:09 | CM ---
Farxiga 10 mg QD $144.76, Jardiance 10 mg =$151.00. MD notified.
On IV antibiotics,
on oxygen 2 liters Pox 98%.
Pt indicated VN [facility] set up.
PLAN Home with [facility]
--- NOTE | 2024-10-17 12:59 | W.PN.PUL3 ---
Today's Communication / Plan
-
- Lower steroids dose to 40 mg daily
- Titrate O2 to keep O2 Sat > 90%
- Start 3% NS Nebulized BID
Assessment
-
Assessment: 89-year-old male with a past medical history of restrictive lung disease, centrilobular emphysema, history of COPD, gout, history of sleep apnea intolerant to CPAP, aortic stenosis, CHF, A-fib on Eliquis and CAD s/p CABG who presents
with SOB, cough, wheezing and ankle swelling. He reportedly had gained 4 pounds over the last 4 days prior to arrival. In the ER he was afebrile, pulse rate 88, BP 125/75 and was saturating 88% on room air which improved to 94% on 2 L/min nasal
cannula. Initial labs pertinent for Hb 12.3, proBNP 41 7, and COVID-19 antigen negative. Flu swab collected and was negative. CXR showed suspected CHF with component of chronic interstitial lung disease. He was initially diuresed and given
DuoNebs and Solu-Medrol and admitted to the floor. Despite diuresis he had continued to feel short of breath with a wet sounding cough. CT chest obtained on 10/15/2024 showing significant bronchial wall thickening with severe bilateral lower lobe
bronchitis/bronchiolitis with bilateral lower lobe centrilobular patchy nodular opacities concerning for pneumonia/aspiration. He also has moderate bilateral upper lobe centrilobular emphysema with subpleural interstitial reticular opacities.
Pulmonary service now consulted for additional management/recommendations.
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
#1. Acute severe bronchitis with COPD exacerbation.
-Moderate centrilobular emphysema noted in bilateral upper lobes along with scarring.
-Continue Unasyn and Zithromax as ordered
-Diffuse rhonchi and difficulty expectoration, add 3% NS nebulized BID, continue Mucinex
-Continue Duoneb, Budesonide, lower Steroids dose to 40 mg daily
-f/u Sputum culture
-Radiological features suggestive of chronic aspiration. Bedside speech evaluation unremarkable. Patient refused FEES for further evaluation.
#2. Acute respiratory failure with hypoxia due to above
- Improving
- Wean O2 as tolerated, target O2 above 90% in the setting of PH
#3. Chronic pulmonary hypertension (suspected moderate severity with PASP 40-50mmHg on recent TTE from 08/24/2024, and it has been in this range as far back as 2018)
- Suspect Group II (CHF) and Group III (COPD)
- Target euvolemia, O2 sat > 90%. Out patient pulmonary follow up for further work up and management.
Other medical diagnoses:
- Chronic HFpEF. cardiology service on case
- Valvular heart disease with moderate , moderate AI, mild-moderate TR, and mild MR (per TTE from 08/24/2024)
- Former tobacco smoker
DVT prophylaxis: On Lovenox
Data:
CT chest without contrast 10/15/2024:
SEVERE BILATERAL LOWER LOBE BRONCHITIS in a large number of new small centrilobular pulmonary nodules in the posterior and lateral basilar segments of the left lower lobe consistent with SEVERE BRONCHIOLITIS and probably AIRWAY ASPIRATION. Mild
bronchiolitis in the right lower lobe.
2. Moderate bilateral upper lobe centrilobular emphysema.
3. Severe calcific atherosclerotic plaque in the aorta and [place] coronary arteries.
4. Previous CABG surgery.
5. Mild cardiomegaly.
6. Mild mediastinal lymphadenopathy.
7. Small midline anterior abdominal wall hernia containing transverse colon.
8. Cholelithiasis.
9. 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
10. Chronic vertebral body endplate fractures of T12..
Total time spent today was 47 minutes for this encounter. Time includes reviewing laboratory test/imaging results, reviewing pertinent medical records, obtaining and reviewing medical history, performing an appropriate exam, ordering medications,
tests and procedures. Time also includes documentation of this encounter, coordinating patient care and communicating with other healthcare professionals. Total time does not include separately billed tests performed on this date of service.
Subjective Data
-
Date of Service:
Date of Service: October 17, 2024
Subjective:
Patient comfortably sitting in chair, reports feeling overall better
Review of Systems
Genitourinary: Other (All 14 systems reviewed and negative except as stated above in the history of present illness.)
Objective Data
Data Reviewed
Vital Signs / I&O / Oxygen:
Vital Signs
Temp Pulse Resp BP Pulse Ox
97.9 F 85 18 147/70 98
10/17/24 10:46 10/17/24 10:46 10/17/24 10:46 10/17/24 10:46 10/17/24 10:46
Intake and Output
10/16/24 10/17/24 10/18/24
06:59 06:59 06:59
Intake Total 1260 / 1260 800 / 800
Output Total 1400 / 1400 1400 / 1400
Balance -140 / -140 -600 / -600
SaO2 98
Nasal Cannula flow liters per 2
minute
Physical Exam
General: Comfortable
HEENT: Normocephalic
Cardiovascular: S1-S2
Respiratory: Rhonchi (Bilateral diffuse rhonchi)
GI: Soft and Non Distended
Neurology: Awake and Alert
Skin: Warm
Labs/Micro/Reports
Lab Data
10/17/24 05:14
10/17/24 05:14
Microbiology
10/16/24 08:24 Sputum Respiratory Culture - Preliminary
10/16/24 08:24 Sputum Gram Stain - Preliminary
--- NOTE | 2024-10-17 14:28 | W.PN.HOSP.TC ---
Today's Communication/Plan
-
Monitor volume status closely. Continue as needed Lasix.
Continue antibiotics
Continue IV steroids with slow taper
Increase activity as tolerated
Assessment / Plan
Assessment / Plan
Impression:
Acute hypoxic respiratory failure secondary to CHF.
Acute CHF preserved EF exacerbation.
Acute pulmonary edema secondary to above
Other conditions:
Permanent atrial fibrillation.
Anticoagulation with apixaban
Valvular disease including moderate AAS and AR, mild to moderate TR
COPD.
Obstructive sleep apnea CPAP intolerant
Former smoker
CAD status post CABG 2005.
Dyslipidemia
CKD stage IIIb.
Anemia of chronic disease
Plan:
Acute preserved EF CHF exacerbation
Noted with hypoxia
Chest x-ray consistent with bilateral interstitial edema.
Weight is up at least 4 pounds since last admission.
Continue O2 supplementation with attempt to wean.
Home O2 assessment prior to discharge
Continue IV Lasix for another 24 hours. Dry weight around 73 kg.
Follow renal function
Not on TOMASA/ARB/Arni given CKD
# Acute respiratory distress
Acute COPD exacerbation secondary to bronchitis
He remains to have persistent cough/ rales despite diuretic therapy . Acute hypoxic respiratory failure with respiratory distress, requiring oxygen, using accessory respiratory muscles.
Lung exam with rales and rhonchi
CT chest showed moderate to severe bilateral bronchiolitis with emphysema.
Initiated on antibiotics: Unasyn, Zithromax.
Agree with reinstatement of IV steroids. Continue taper
CKD stage IIIb with baseline creatinine around 1.8-2.0
Chronic metabolic acidosis on bicarb maintenance
Monitor creatinine with diuresis
Permanent atrial fibrillation
Continue rate control with Cardizem
Anticoagulation with apixaban
CBC in AM
Ambulatory dysfunction
Recent fall at home with forehead laceration.
CT head with no acute abnormal
Neurologic exam with no focal findings
Physical/Occupational Therapy assessment with discharge planning
Anticipated Discharge: 24 - 48 hours
Subjective/Interval History
-
Date of Service: October 17, 2024
Objective Data
-
Labs:
Laboratory Results
10/17/24
05:14
WBC 5.6
Hgb 13.0
Hct 40.7
Plt Count 203
Sodium 136
Potassium 4.7
Chloride 102
Carbon Dioxide 25
BUN 52 H
Creatinine 1.4 H
Glucose 163 H
Calcium 8.9
Total Bilirubin 1.4 H
AST 25
ALT 38
Alkaline Phosphatase 89
Vital Signs:
Vital Signs
Temp Pulse Resp BP Pulse Ox
97.9 F 85 18 147/70 98
10/17/24 10:46 10/17/24 10:46 10/17/24 10:46 10/17/24 10:46 10/17/24 10:46
I&O
10/16/24 10/17/24 10/18/24
06:59 06:59 06:59
Intake Total 1260 / 1260 800 / 800
Output Total 1400 / 1400 1400 / 1400
Balance -140 / -140 -600 / -600
Physical Exam
-
General: Appears Chronically Ill
HEENT: PERRLA
Respiratory: Rales; Negative Wheezes
Cardiac: S1/S2 and Irregular Rhythm
GI: Soft and Nontender
Musculoskeletal: No Edema and Other (left ankle with decreased tenderness )
Skin: Warm and Dry; Negative Rash
Neuro: Awake and AO x 3
Psych: Calm; Negative Intact Judgement/Insight
[2024-10-17] MEDS: CRESTOR 40 MG PO (17:29)
[2024-10-17] MEDS: SODIUM CHLORIDE 3% FOR INHALATION 1 VIAL INH (19:32)
--- NOTE | 2024-10-17 21:52 | PTCARENOTE ---
patient was offered (and also offered supplies) for oral and body multiple times. Patient refused and said it is their preference to do it in the morning.
[2024-10-17] MEDS: ZYLOPRIM 300 MG PO (22:19)
[2024-10-18 03:00] VITALS: BP 142/77
[2024-10-18] MEDS: UNASYN IV ×4 (04:20→23:10)
[2024-10-18 04:47] VITALS: BMI 27.6
[2024-10-18] MEDS: SODIUM CHLORIDE 3% FOR INHALATION 1 VIAL INH ×2 (07:25→19:24)
[2024-10-18] MEDS: DUONEB 3 ML INH ×2 (07:25→19:23)
[2024-10-18] MEDS: PULMICORT 0.5 MG INH ×2 (07:25→19:24)
[2024-10-18] MEDS: MUCINEX 1200 MG PO ×2 (07:48→20:07)
[2024-10-18] MEDS: SOLU-MEDROL PF 40 MG IV (07:48)
[2024-10-18] MEDS: ZITHROMAX 250 MG PO (07:48)
[2024-10-18] MEDS: SODIUM BICARBONATE 650 MG PO ×3 (07:48→23:09)
[2024-10-18] MEDS: ELIQUIS 2.5 MG PO ×2 (07:48→20:07)
[2024-10-18] MEDS: CARDIZEM CD 120 MG PO (07:49)
[2024-10-18 08:11] VITALS: BP 132/69
--- NOTE | 2024-10-18 10:20 | W.PN.PUL3 ---
Today's Communication / Plan
-
- Continue current treatment
- PT/OT, increase activity as tolerated, assess for need for home oxygen
- Discharge planning
Assessment
-
Assessment: 89-year-old male with a past medical history of restrictive lung disease, centrilobular emphysema, history of COPD, gout, history of sleep apnea intolerant to CPAP, aortic stenosis, CHF, A-fib on Eliquis and CAD s/p CABG who presents
with SOB, cough, wheezing and ankle swelling. He reportedly had gained 4 pounds over the last 4 days prior to arrival. In the ER he was afebrile, pulse rate 88, BP 125/75 and was saturating 88% on room air which improved to 94% on 2 L/min nasal
cannula. Initial labs pertinent for Hb 12.3, proBNP 41 7, and COVID-19 antigen negative. Flu swab collected and was negative. CXR showed suspected CHF with component of chronic interstitial lung disease. He was initially diuresed and given
DuoNebs and Solu-Medrol and admitted to the floor. Despite diuresis he had continued to feel short of breath with a wet sounding cough. CT chest obtained on 10/15/2024 showing significant bronchial wall thickening with severe bilateral lower lobe
bronchitis/bronchiolitis with bilateral lower lobe centrilobular patchy nodular opacities concerning for pneumonia/aspiration. He also has moderate bilateral upper lobe centrilobular emphysema with subpleural interstitial reticular opacities.
Pulmonary service now consulted for additional management/recommendations.
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
#1. Acute severe bronchitis with COPD exacerbation.
-Moderate centrilobular emphysema noted in bilateral upper lobes along with scarring.
-Continue Unasyn and Zithromax as ordered, sputum culture negative so far
-Diffuse rhonchi and difficulty expectoration, Continue 3% NS nebulized BID, continue Mucinex
-Continue Duoneb, Budesonide, IV Solumedrol at 40 mg daily
-Radiological features suggestive of chronic aspiration. Bedside speech evaluation unremarkable. Patient refused FEES for further evaluation.
-Recommend PT/OT, activity as tolerated. Assess for home O2 need.
#2. Acute respiratory failure with hypoxia due to above
- Improving
- Wean O2 as tolerated, target O2 above 90% in the setting of PH. On room air this AM.
#3. Chronic pulmonary hypertension (suspected moderate severity with PASP 40-50mmHg on recent TTE from 08/24/2024, and it has been in this range as far back as 2018)
- Suspect Group II (CHF) and Group III (COPD)
- Target euvolemia, O2 sat > 90%. Out patient pulmonary follow up for further work up and management.
Other medical diagnoses:
- Chronic HFpEF. cardiology service on case
- Valvular heart disease with moderate , moderate AI, mild-moderate TR, and mild MR (per TTE from 08/24/2024)
- Former tobacco smoker
DVT prophylaxis: On Lovenox
Data:
CT chest without contrast 10/15/2024:
SEVERE BILATERAL LOWER LOBE BRONCHITIS in a large number of new small centrilobular pulmonary nodules in the posterior and lateral basilar segments of the left lower lobe consistent with SEVERE BRONCHIOLITIS and probably AIRWAY ASPIRATION. Mild
bronchiolitis in the right lower lobe.
2. Moderate bilateral upper lobe centrilobular emphysema.
3. Severe calcific atherosclerotic plaque in the aorta and [place] coronary arteries.
4. Previous CABG surgery.
5. Mild cardiomegaly.
6. Mild mediastinal lymphadenopathy.
7. Small midline anterior abdominal wall hernia containing transverse colon.
8. Cholelithiasis.
9. 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
10. Chronic vertebral body endplate fractures of T12..
Total time spent today was 45 minutes for this encounter. Time includes reviewing laboratory test/imaging results, reviewing pertinent medical records, obtaining and reviewing medical history, performing an appropriate exam, ordering medications,
tests and procedures. Time also includes documentation of this encounter, coordinating patient care and communicating with other healthcare professionals. Total time does not include separately billed tests performed on this date of service.
Subjective Data
-
Date of Service:
Date of Service: October 18, 2024
Subjective:
Patient comfortably sitting in chair, on room air currently, reports feeling overall better since initial admission.
Review of Systems
Genitourinary: Other (No new symptoms reported. Reports improving cough and expectoration.)
Objective Data
Data Reviewed
Vital Signs / I&O / Oxygen:
Vital Signs
Temp Pulse Resp BP Pulse Ox
98.1 F 89 19 132/69 95
10/18/24 08:11 10/18/24 08:11 10/18/24 08:11 10/18/24 08:11 10/18/24 08:11
Intake and Output
10/17/24 10/18/24 10/19/24
06:59 06:59 06:59
Intake Total 800 / 800 620 / 620 720 / 720
Output Total 1400 / 1400 470 / 470 1150 / 1150
Balance -600 / -600 150 / 150 -430 / -430
SaO2 95
Nasal Cannula flow liters per 94
minute
Physical Exam
General: Comfortable
HEENT: Normocephalic
Cardiovascular: S1-S2
Respiratory: Rhonchi (Bilateral diffuse rhonchi, overall improving)
GI: Soft and Non Distended
Neurology: Awake and Alert
Skin: Warm
Labs/Micro/Reports
Lab Data
10/17/24 05:14
10/17/24 05:14
Microbiology
10/16/24 08:24 Sputum Respiratory Culture - Final
Usual Respiratory Radha
10/16/24 08:24 Sputum Gram Stain - Final
10/16/24 20:43 Blood/Venous Blood Culture - Preliminary
No Growth in 24 hours- Final report to follow
[2024-10-18 10:49] VITALS: BP 139/62
--- NOTE | 2024-10-18 12:56 | CM ---
CM following for discharge planning. Pt referred and accepted by [facility] for home health services after discharge.
Plan: Discharge to home with [facility].
[2024-10-18 15:06] VITALS: BP 134/66
--- NOTE | 2024-10-18 15:46 | W.PN.HOSP.TC ---
Today's Communication/Plan
-
Continue antibiotics
Hope to transition to oral steroid taper over the next 24 hours
Home O2 assessment
Assessment / Plan
Assessment / Plan
Impression:
Acute hypoxic respiratory failure secondary to CHF.
Acute CHF preserved EF exacerbation.
Acute pulmonary edema secondary to above
Other conditions:
Permanent atrial fibrillation.
Anticoagulation with apixaban
Valvular disease including moderate AAS and AR, mild to moderate TR
COPD.
Obstructive sleep apnea CPAP intolerant
Former smoker
CAD status post CABG 2005.
Dyslipidemia
CKD stage IIIb.
Anemia of chronic disease
Plan:
Acute preserved EF CHF exacerbation
Noted with hypoxia
Chest x-ray consistent with bilateral interstitial edema.
Weight is up at least 4 pounds since last admission.
Continue O2 supplementation with attempt to wean.
Home O2 assessment prior to discharge
Continue IV Lasix for another 24 hours. Dry weight around 73 kg.
Follow renal function
Not on TOMASA/ARB/Arni given CKD
# Acute respiratory distress
Acute COPD exacerbation secondary to bronchitis
He remains to have persistent cough/ rales despite diuretic therapy . Acute hypoxic respiratory failure with respiratory distress, requiring oxygen, using accessory respiratory muscles.
Lung exam with rales and rhonchi
CT chest showed moderate to severe bilateral bronchiolitis with emphysema.
Initiated on antibiotics: Unasyn, Zithromax.
Agree with reinstatement of IV steroids. Continue taper
CKD stage IIIb with baseline creatinine around 1.8-2.0
Chronic metabolic acidosis on bicarb maintenance
Monitor creatinine with diuresis
Permanent atrial fibrillation
Continue rate control with Cardizem
Anticoagulation with apixaban
CBC in AM
Ambulatory dysfunction
Recent fall at home with forehead laceration.
CT head with no acute abnormal
Neurologic exam with no focal findings
Physical/Occupational Therapy assessment with discharge planning
Anticipated Discharge: 24 - 48 hours
Subjective/Interval History
-
Date of Service: October 18, 2024
Objective Data
-
Vital Signs:
Vital Signs
Temp Pulse Resp BP Pulse Ox
98.4 F 83 17 134/66 95
10/18/24 15:06 10/18/24 15:06 10/18/24 15:06 10/18/24 15:06 10/18/24 15:06
I&O
10/17/24 10/18/24 10/19/24
06:59 06:59 06:59
Intake Total 800 / 800 620 / 620 720 / 720
Output Total 1400 / 1400 470 / 470 1150 / 1150
Balance -600 / -600 150 / 150 -430 / -430
Physical Exam
-
General: Appears Chronically Ill
HEENT: PERRLA
Respiratory: Rales; Negative Wheezes
Cardiac: S1/S2 and Irregular Rhythm
GI: Soft and Nontender
Musculoskeletal: No Edema and Other (left ankle with decreased tenderness )
Skin: Warm and Dry; Negative Rash
Neuro: Awake and AO x 3
Psych: Calm; Negative Intact Judgement/Insight
[2024-10-18 15:47] VITALS: PULSE 83; O2SAT 96
[2024-10-18] MEDS: CRESTOR 40 MG PO (17:02)
[2024-10-18 23:00] VITALS: BP 149/85
[2024-10-18] MEDS: ZYLOPRIM 300 MG PO (23:10)
[2024-10-19] MEDS: UNASYN IV ×2 (04:00→09:21)
--- NOTE | 2024-10-19 04:27 | DOWNTIME ---
Addendum entered by Monica Holt RN 10/19/24 14:13:
Correction to downtime 10/19/2024 from 0100 to 10/19/24 at 0415.
Original Note:
There was a [employer] Client [employer]posal Specialist Downtime on 10/18/2024 from 0100 to 10/19/2024 at 0415. Downtime documentation of patient's care, including medication administrations, has been reconciled in the electronic record per guidelines. Refer to the
patient's paper chart under the miscellaneous tab to see printed paper medication records and downtime forms.
[2024-10-19 05:55] VITALS: BMI 27.9
[2024-10-19 07:30] VITALS: BP 150/87
[2024-10-19] MEDS: SODIUM CHLORIDE 3% FOR INHALATION 1 VIAL INH (07:43)
[2024-10-19] MEDS: PULMICORT 0.5 MG INH (07:43)
[2024-10-19] MEDS: DUONEB 3 ML INH (07:43)
[2024-10-19] MEDS: ZITHROMAX 250 MG PO (08:37)
[2024-10-19] MEDS: MUCINEX 1200 MG PO (08:37)
[2024-10-19] MEDS: SODIUM BICARBONATE 650 MG PO (08:37)
[2024-10-19] MEDS: ELIQUIS 2.5 MG PO (08:38)
[2024-10-19] MEDS: SOLU-MEDROL PF 40 MG IV (08:38)
[2024-10-19] MEDS: CARDIZEM CD 120 MG PO (08:38)
--- NOTE | 2024-10-19 11:38 | W.PN.PUL3 ---
Today's Communication / Plan
-
- Discontinue IV Solu-Medrol, start prednisone 40 mg and decrease dose by 10 mg every 3 days
- Check oxygen saturation at rest and also with activity
- PT/OT discharge planning
- Patient will resume follow-up with pulmonary clinic as outpatient
Assessment
-
Assessment: 89-year-old male with a past medical history of restrictive lung disease, centrilobular emphysema, history of COPD, gout, history of sleep apnea intolerant to CPAP, aortic stenosis, CHF, A-fib on Eliquis and CAD s/p CABG who presents
with SOB, cough, wheezing and ankle swelling. He reportedly had gained 4 pounds over the last 4 days prior to arrival. In the ER he was afebrile, pulse rate 88, BP 125/75 and was saturating 88% on room air which improved to 94% on 2 L/min nasal
cannula. Initial labs pertinent for Hb 12.3, proBNP 41 7, and COVID-19 antigen negative. Flu swab collected and was negative. CXR showed suspected CHF with component of chronic interstitial lung disease. He was initially diuresed and given
DuoNebs and Solu-Medrol and admitted to the floor. Despite diuresis he had continued to feel short of breath with a wet sounding cough. CT chest obtained on 10/15/2024 showing significant bronchial wall thickening with severe bilateral lower lobe
bronchitis/bronchiolitis with bilateral lower lobe centrilobular patchy nodular opacities concerning for pneumonia/aspiration. He also has moderate bilateral upper lobe centrilobular emphysema with subpleural interstitial reticular opacities.
Pulmonary service now consulted for additional management/recommendations. Patient follows with us in the [facility] office with last visit on 09/02/2024 with LINDA Resendiz. Patient is very sedentary and just wanted to focus on being comfortable.
He has rib fractures and that may be worsening his shortness of breath. He is prescribed DuoNebs. He was told to follow-up with us in 6 months with possible spirometry and 6 MWT. Last PFT was in July 2021 which showed no obstructive lung defect
the time, no restriction and there was a moderate gas exchange capacity defect which was mild when accounting for alveolar volume involved in gas exchange (DLCO: 48%, DLCO/VA: 62%).
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
#1. Acute severe bronchitis with COPD exacerbation.
-Moderate centrilobular emphysema noted in bilateral upper lobes along with scarring.
-Continue Unasyn and Zithromax as ordered, sputum culture negative so far
-Continue 3% NS nebulized BID, continue Mucinex while in hospital
-Continue Duoneb, Budesonide, switch to prednisone 40 mg daily
-Radiological features suggestive of chronic aspiration. Bedside speech evaluation unremarkable. Patient refused FEES for further evaluation.
-Recommend PT/OT, activity as tolerated. Assess for home O2 need.
- Clinically improving, wheezing significantly improved.
#2. Acute respiratory failure with hypoxia due to above
- Improving
- Wean O2 as tolerated, target O2 above 90% in the setting of PH. On room air this AM.
#3. Chronic pulmonary hypertension (suspected moderate severity with PASP 40-50mmHg on recent TTE from 08/24/2024, and it has been in this range as far back as 2018)
- Suspect Group II (CHF) and Group III (COPD)
- Target euvolemia, O2 sat > 90%. Out patient pulmonary follow up for further work up and management.
Other medical diagnoses:
- Chronic HFpEF. cardiology service on case
- Valvular heart disease with moderate , moderate AI, mild-moderate TR, and mild MR (per TTE from 08/24/2024)
- Former tobacco smoker
DVT prophylaxis: On Lovenox
Outpatient follow-up with pulmonary clinic in 1 to 2 weeks post discharge
Data:
CT chest without contrast 10/15/2024:
SEVERE BILATERAL LOWER LOBE BRONCHITIS in a large number of new small centrilobular pulmonary nodules in the posterior and lateral basilar segments of the left lower lobe consistent with SEVERE BRONCHIOLITIS and probably AIRWAY ASPIRATION. Mild
bronchiolitis in the right lower lobe.
2. Moderate bilateral upper lobe centrilobular emphysema.
3. Severe calcific atherosclerotic plaque in the aorta and [place] coronary arteries.
4. Previous CABG surgery.
5. Mild cardiomegaly.
6. Mild mediastinal lymphadenopathy.
7. Small midline anterior abdominal wall hernia containing transverse colon.
8. Cholelithiasis.
9. 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
10. Chronic vertebral body endplate fractures of T12..
Total time spent today was 45 minutes for this encounter. Time includes reviewing laboratory test/imaging results, reviewing pertinent medical records, obtaining and reviewing medical history, performing an appropriate exam, ordering medications,
tests and procedures. Time also includes documentation of this encounter, coordinating patient care and communicating with other healthcare professionals. Total time does not include separately billed tests performed on this date of service.
Subjective Data
-
Date of Service:
Date of Service: October 19, 2024
Subjective:
Patient comfortably sitting in chair, overall feels better.
Review of Systems
Genitourinary: Other (All 14 systems reviewed and negative except as stated above in the history of present illness.)
Objective Data
Data Reviewed
Vital Signs / I&O / Oxygen:
Vital Signs
Temp Pulse Resp BP Pulse Ox
97.9 F 78 18 150/87 94
10/19/24 07:30 10/19/24 08:38 10/19/24 07:46 10/19/24 08:38 10/19/24 07:46
Intake and Output
10/18/24 10/19/24 10/20/24
06:59 06:59 06:59
Intake Total 620 / 620 1920 / 1920 350 / 350
Output Total 470 / 470 1900 / 1900 1030 / 1030
Balance 150 / 150 20 / 20 -680 / -680
SaO2 94
Nasal Cannula flow liters per 94
minute
Physical Exam
General: Comfortable
HEENT: Normocephalic
Cardiovascular: S1-S2
Respiratory: Rhonchi (Significantly improved bilateral rhonchi, minimal end expiratory wheezing.)
GI: Soft and Non Distended
Neurology: Awake and Alert
Skin: Warm
Labs/Micro/Reports
Lab Data
10/17/24 05:14
10/17/24 05:14
Microbiology
10/16/24 20:43 Blood/Venous Blood Culture - Preliminary
No Growth in 48 hours- Final report to follow
10/16/24 08:24 Sputum Respiratory Culture - Final
Usual Respiratory Radha
10/16/24 08:24 Sputum Gram Stain - Final
[2024-10-19 15:30] VITALS: BP 123/63
--- NOTE | 2024-10-19 16:31 | CM ---
Home oxygen test does not qualify pt for home oxygen.
Steroids taper.
Spoke with Michaelle peraza. she requested [facility] at discharge.
She said she will drive him home at discharge .IMM reviewed with Michaelle.
PLAN Home with [facility]
--- NOTE | 2024-10-19 16:35 | W.DS.TRANS ---
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
-
Discharge Instructions:
Discharge Diagnosis/Procedures Acute bronchitis
COPD exacerbation
Diet 2 Gram Sodium
Instructions: *CBC Heart Failure Instructions
Stand-Alone Forms:
Changes to Home Medications: Yes
Discharge Medications:
DC Medications w/original date entered in [facility]
cyanocobalamin (vitamin B-12) 1,000 mcg tablet 1,000 mcg PO DAILY Supplement 07/04/11
budesonide 0.5 mg/2 mL suspension for nebulization 0.5 mg inhalation R BID Lung/breathing issues 02/28/20
rosuvastatin 40 mg tablet (Crestor) 40 mg PO QPM High cholesterol 02/28/20
allopurinol 300 mg tablet 300 mg PO HS Gout 05/08/23
ipratropium 0.5 mg-albuterol 3 mg (2.5 mg base)/3 mL nebulization soln 3 ml inhalation R TID Lung/Breathing Issues 05/08/23
apixaban 2.5 mg tablet (Eliquis) 2.5 mg PO BID afib #0 tabs 05/11/23
omega 0-txd-tht-fish oil 1,200 mg (144 mg-216 mg) capsule (Fish Oil) 1,200 cap PO DAILY Supplement #0 caps 05/11/23
acetaminophen 500 mg tablet (Tylenol Extra Strength) 1,000 mg PO BIDPRN PRN mild pain 05/25/23
sodium bicarbonate 650 mg tablet 650 mg PO TID Supplement 08/22/24
furosemide 20 mg tablet 20 mg PO DAILYPRN PRN Weight gain 10/12/24
amoxicillin 875 mg-potassium clavulanate 125 mg tablet 1 tab PO Q12H #10 tabs 10/19/24
azithromycin 250 mg tablet 250 mg PO DAILY #5 tabs 10/19/24
diltiazem HCl 120 mg capsule,extended release 24 hr 240 mg (2 x 120 mg) PO DAILY #60 caps 10/19/24
guaifenesin 600 mg tablet, extended release 12 hr 1,200 mg (2 x 600 mg) PO Q12 #90 tabs 10/19/24
pantoprazole 20 mg tablet,delayed release (Protonix) 20 mg PO DAILY #30 tabs 10/19/24
prednisone 10 mg tablet 10 mg PO DIRECTED #30 tabs 10/19/24
Home Medication Changes
Cardizem increased
Steroid taper
Protonix
Antibiotics for additional 5 days
Pending Results: No
--- NOTE | 2024-10-20 09:35 | W.HF.CON ---
Heart Failure
- LV Function
Left ventricular function study result: LV Ejection fraction >/= 50% (ECHO 08/24/24)
Ejection Fraction Percentage: 60-65
- ARNI
Patient already on ARNI: No
Heart Failure ARNI Not Indicated: LV Ejection Fraction >/= 40%
- ACEI/ARB
Patient already on ACEI/ARB: No
Heart Failure ACEI/ARB Not Indicated: LV Ejection Fraction > 40%
- Beta Jc
Patient already on Evidence Based Beta Jc: No
Heart Failure Evidence Based Beta Jc Not Indicated: LV Ejection Fraction > 40%
- Mineralocorticord Receptor Antagonist
Patient already on MRA: No
Heart Failure MRA Not Indicated: LV Ejection Fraction > 40%
- SGLT-2 Inhibitor
Patient already on SGLT-2 Inhibitor: No
Heart Failure SGLT-2 Inhibitor Not Indicated: LV Ejection Fraction >40%
- Afib Anticoagulation
Patient already on Anticoagulation for Afib: Yes
- NYHA CHF Classification
NYHA CHF Classification Level: Class III - Symptoms w/ min exertion, interferes w/ nml daily activity
- ACC/AHA Stage
ACC/AHA Stage: Stage C: Symptomatic Heart Failure
== END 2024-10-19 18:28 | disposition home health service (06) | DRG 291 ==
LOC: 3 WEST ACU 19:11
PROVIDERS: Internal Medicine; ADMITTING PHYSICIAN Internal Medicine; ATTENDING PHYSICIAN Internal Medicine; CONSULT PHYSICIAN Internal Medicine Critical Care Medicine; EMERGENCY PHYSICIAN Emergency Medicine; FAMILY PHYSICIAN Family Medicine; OTHER PHYSICIAN Student in an Organized Health Care Education/Training Program
DX: I13.0 Hypertensive heart and chronic kidney disease with heart failure and stage 1 through stage 4 chronic kidney disease, or unspecified chronic kidney disease (principal); J96.01 Acute respiratory failure with hypoxia; J44.1 Chronic obstructive pulmonary disease with (acute) exacerbation; I50.32 Chronic diastolic (congestive) heart failure; I48.21 Permanent atrial fibrillation; E87.22 Chronic metabolic acidosis; J44.0 Chronic obstructive pulmonary disease with (acute) lower respiratory infection; J21.9 Acute bronchiolitis, unspecified; N18.32 Chronic kidney disease, stage 3b; Z79.01 Long term (current) use of anticoagulants; E78.00 Pure hypercholesterolemia, unspecified; Z95.1 Presence of aortocoronary bypass graft; I25.10 Atherosclerotic heart disease of native coronary artery without angina pectoris; G47.33 Obstructive sleep apnea (adult) (pediatric); Z87.891 Personal history of nicotine dependence; D63.1 Anemia in chronic kidney disease; J43.2 Centrilobular emphysema; I73.9 Peripheral vascular disease, unspecified; I27.20 Pulmonary hypertension, unspecified; J98.4 Other disorders of lung; Z11.52 Encounter for screening for COVID-19; J84.10 Pulmonary fibrosis, unspecified; Z79.51 Long term (current) use of inhaled steroids; Z80.3 Family history of malignant neoplasm of breast; Z82.49 Family history of ischemic heart disease and other diseases of the circulatory system
CPT/HCPCS: 70450; 71046; 71250; 80048; 80053; 83880; 84439; 84443; 85025; 85027; 87040; 87070; 87205; 87502; 87811; 92610; 93005; 94640; 96374; 96375; 97116; 97162; 97166; 97530; 97535; 99285